=== PATIENT | female | born 1935 | race Caucasian/White ===

== ENCOUNTER 2021-12-27 12:22 | Inpatient (IN) ==
--- NOTE | 2021-12-27 12:43 | Emergency Department Note ---
HPI General Chief complaint: Cold/Flu Symptoms Stated complaint: Covid symptoms Time Seen by Provider: 12/27/21 12:28 Source: patient and family Mode of arrival: wheelchair Limitations: no limitations History of Present Illness HPI Narrative: Narrative: 86-year-old female with a history of CKD, diabetes, atrial tachycardia, hypertriglyceridemia, diverticular disease, COPD, asthma and anxiety presents the ER to be evaluated for worsening shortness of breath. She was seen at the [facility] urgent care about 2 weeks ago and was told she had a virus and was sent home. She was seen again and had a chest x-ray was told it was normal and again was sent home. She states she is had increasing productive sputum, cough, significant shortness of breath and generally does not feel well. She denies fever, vomiting, chest pain, chest pressure, abdominal pain, dysuria, urgency, frequency or diarrhea. Nothing is made things better or worse for her. This has been worsening over the last 2 weeks. Related Data Home Medications Medication Instructions Recorded Confirmed albuterol sulfate 90 mcg/actuation 90 mcg inhalation .COMPLEX PRN 01/24/15 12/19/21 aerosol inhaler shortness of breath lorazepam 1 mg tablet 1 mg PO BIDP PRN Anxiety 01/24/15 12/19/21 montelukast 10 mg tablet 10 mg PO QPM 01/24/15 12/19/21 gemfibrozil 600 mg tablet 600 mg PO BID 11/05/15 12/19/21 azathioprine 50 mg tablet 100 mg PO QDAY 07/09/16 12/19/21 topiramate 25 mg tablet 25 mg PO BID PRN 11/06/16 12/19/21 levothyroxine 50 mcg capsule 50 mcg PO QDAY 03/08/19 12/19/21 methocarbamol 500 mg tablet 500 mg PO TID PRN 10/31/19 12/19/21 metoprolol tartrate 50 mg tablet 50 mg PO BID 10/31/19 12/19/21 albuterol sulfate 1.25 mg/3 mL 1.25 mg inhalation TID PRN 04/01/21 12/19/21 solution for nebulization cholecalciferol (vitamin D3) 50 50 mcg PO QDAY 04/01/21 12/19/21 mcg (2,000 unit) capsule duloxetine 30 mg capsule,delayed 30 mg PO BID 04/01/21 12/19/21 release acetaminophen 500 mg oral powder 500 mg PO QDAY PRN 04/10/21 12/19/21 packet (Tylenol Extra Strength) tumeric 100 mg-geovanna 150 mg-olive cap PO 04/10/21 12/19/21 50 mg-oreg 150 mg-caprylate capsule cyanocobalamin (vitamin B-12) 1,000 mcg IM QMONTH 07/25/21 12/19/21 1,000 mcg/mL injection solution gabapentin 600 mg tablet 300 mg PO TID PRN 07/25/21 12/19/21 vitamin B complex 1 tab PO QDAY 07/25/21 12/19/21 duloxetine 30 mg capsule,delayed 30 mg PO QDAY 12/09/21 12/19/21 release Allergies Allergy/AdvReac Type Severity Reaction Status Date / Time cinacalcet [From Sensipar] Allergy Severe Swelling Verified 12/27/21 12:54 of Lip/Tongue/Throat codeine [CODEINE] Allergy Intermediate RASH SKIN Verified 12/27/21 12:54 PEELING Penicillins [PENICILLINS] Allergy Mild RASH/ITCHIN Verified 12/27/21 16:14 G Pneumococcal Vaccine Allergy Mild Rash Verified 12/27/21 16:14 [From Pneumovax-23] methadone Allergy Unknown Unknown Verified 12/27/21 12:54 hydrochlorothiazide AdvReac Mild Confusion Verified 12/27/21 16:14 iron AdvReac Mild Nausea Verified 12/27/21 16:14 midazolam [From Versed] AdvReac Mild Vomiting Verified 12/27/21 16:14 omeprazole [From Prilosec] AdvReac Mild Shakiness Verified 12/27/21 16:14 prednisone AdvReac Mild Shakiness Verified 12/27/21 16:14 rosuvastatin [From Crestor] AdvReac Mild Nausea Verified 12/27/21 16:14 simvastatin [From Zocor] AdvReac Mild Nausea Verified 12/27/21 16:14 tramadol [From Ultram] AdvReac Mild Dizziness, Verified 12/27/21 16:14 itching From ANAPROX Allergy Intermediate NAUSEA H/A Uncoded 12/09/21 10:15 From DARVOCET-N 100 Allergy Intermediate NAUSEA H/A Uncoded 12/09/21 10:15 From DILAUDID Allergy Intermediate N/V Uncoded 12/09/21 10:15 From PERCOCET Allergy Intermediate ITCHING Uncoded 12/09/21 10:15 RASH From TALWIN Allergy Intermediate NAUSEA H/A Uncoded 12/09/21 10:15 From ULTRAM Allergy Intermediate ITCHING Uncoded 12/09/21 10:15 NAUSEA From VICODIN Allergy Intermediate NAUSEA Uncoded 12/09/21 10:15 WEAKNESS LOCOR Allergy Intermediate GI UPSET Uncoded 12/09/21 10:15 FENTANYL PATCH AdvReac Intermediate NAUSEA Uncoded 12/27/21 16:14 SHAKING "VERY ILL" Review of Systems ROS ROS Narrative: Narrative: All systems ED: reviewed and negative except as stated. [facility] Narrative Patient History Narrative: Narrative: Medical/Surgical/Family History All Active Problems (Updated 12/27/21 @ 16:56 by Gen Townsend PA-C) Pneumonia (Acute) Hyponatremia (Acute) Atrial fibrillation (Acute) Hypothyroidism (acquired) (Acute) Community acquired pneumonia (Acute) COPD exacerbation (Acute) Depression with anxiety (Acute) Anxiety disorder (Chronic) Arthralgia (Chronic) Asthma (Chronic) Vulvovaginal candidiasis (Chronic 06/08/13) Chronic kidney disease, stage II (mild) (Chronic 05/16/13) COPD (chronic obstructive pulmonary disease) (Chronic) Benign neoplasm of colon (Chronic) Crohn disease (Chronic) Depression (Chronic) Diverticulosis of colon (Chronic) Dysmetabolic syndrome X (Chronic) Encephalitis (Chronic) Gastroesophageal reflux (Chronic) Hypercalcemia (Chronic) Hyperlipidemia (Chronic) Hyperparathyroidism, primary (Chronic) Hypertension, essential (Chronic) Hypertensive renal disease (Chronic) Incomplete bladder emptying (Chronic 04/14/13) Macular degeneration (Chronic) Microalbuminuria (Chronic 10/20/11) Obesity (Chronic) Osteoarthritis (Chronic) OP (osteoporosis) (Chronic) Overactive bladder (Chronic 05/05/13) Pyelonephritis (Chronic) Sepsis (Chronic) Urge incontinence (Chronic) UTI (urinary tract infection) (Chronic) Vitamin B 12 deficiency (Chronic) Vitamin D deficiency (Chronic) H/O angiography (Chronic) Hx of appendectomy (Chronic) History of back surgery (Chronic) History of bladder surgery (Chronic) S/P bunionectomy (Chronic) S/P cataract surgery (Chronic) S/P PICC central line placement (Chronic 02/25/13) H/O colonoscopy (Chronic 2014) H/O dilation and curettage (Chronic) H/O foot surgery (Chronic) H/O foot surgery (Chronic) H/O inguinal hernia (Chronic) H/O: hysterectomy (Chronic) Status post intraocular lens implant (Chronic) History of knee replacement procedure of right knee (Chronic) History of knee replacement procedure of left knee (Chronic ~2006) H/O lumbosacral spine surgery (Chronic) Status post surgery (Chronic) H/O repair of right rotator cuff (Chronic) Status post biopsy of thyroid gland (Chronic) Status post surgery (Chronic) Abnormal weight loss (Chronic) Polyp of colon (Chronic) Neoplasm of skin (Chronic) Anemia (Chronic) Depressive disorder (Chronic) Anxiety (Chronic) Migraine (Chronic) Tear film insufficiency (Chronic) Hypertensive disorder (Chronic) Bronchitis (Chronic) Moderate chronic obstructive pulmonary disease (Chronic) Diverticular disease (Chronic) Alcoholic fatty liver (Chronic) Seborrheic keratosis (Chronic) Arthritis (Chronic) Foot pain (Chronic) Fatigue (Chronic) History of alcoholism (Chronic) Dizziness (Chronic) Cellulitis (Chronic) Lumbar radiculopathy (Chronic) Mitral valve regurgitation (Chronic) Hypertriglyceridemia (Chronic) Hypothyroidism (Chronic) Peripheral neuropathic pain (Chronic) Gout (Chronic) Chronic pain (Chronic) Other low back pain (Chronic) Failed back syndrome (Chronic) Chronic kidney disease (CKD) stage G2/A2, mildly decreased glomerular filtration rate (GFR) between 60-89 mL/min/1.73 square meter and albuminuria creatinine rat io between 30-299 mg/g (Chronic) Atrial tachycardia (Chronic) Secondary hyperparathyroidism (Chronic) Pain in lower limb (Chronic) Palpitations (Chronic) Diabetes mellitus with neuropathy (Chronic) Medical History Abnormal weight loss 17 lbs weight loss over short period is concerning poor appetite, ? related to constant pain, scheduled to have surgery will follow in 4-6 weeks will follow with CRP, ESR, TSH levels Alcoholic fatty liver Anemia Anxiety bonnie. nocturnal Anxiety disorder Arthralgia Arthritis Asthma Atrial tachycardia Benign neoplasm of colon Bronchitis Cellulitis Chronic kidney disease, stage II (mild) (05/16/13) Chronic pain COPD (chronic obstructive pulmonary disease) Crohn disease Depression Depressive disorder Diabetes mellitus with neuropathy Diverticular disease Diverticulosis of colon sigmoid region Dizziness Dysmetabolic syndrome X Encephalitis Failed back syndrome Fatigue Foot pain Gastroesophageal reflux Gout H/O inguinal hernia 1987 , left inguinal hernia repair History of alcoholism Quit 1970 Hypercalcemia Hyperlipidemia Hyperparathyroidism, primary Hypertension, essential Hypertensive disorder Hypertensive renal disease Hypertriglyceridemia Hypothyroidism Incomplete bladder emptying (04/14/13) Lumbar radiculopathy Macular degeneration Blindness left eye Microalbuminuria (10/20/11) Migraine Mitral valve regurgitation Moderate chronic obstructive pulmonary disease Neoplasm of skin Obesity OP (osteoporosis) Osteoarthritis Other low back pain Overactive bladder (05/05/13) Pain in lower limb Palpitations Peripheral neuropathic pain Polyp of colon Pyelonephritis Seborrheic keratosis Secondary hyperparathyroidism Sepsis Tear film insufficiency Urge incontinence UTI (urinary tract infection) Vitamin B 12 deficiency Vitamin D deficiency Vulvovaginal candidiasis (06/08/13) Surgical History H/O angiography 1975, 2001 coronary angiography done at [facility]- results were neg for CAD, repeated procedure in , unremarkable. H/O colonoscopy (2013) Crohns/12/12/09 H/O dilation and curettage 1968 d/t miscarriage H/O foot surgery 2003 left H/O foot surgery 2004 Right reconstructive H/O lumbosacral spine surgery 07/2008 Lumbar decompression H/O repair of right rotator cuff 2000 H/O: hysterectomy 1973 [facility] History of back surgery 2000 removal of synovial cyst History of bladder surgery 1975 Had the magaly-Quentin procedure with suprapubic cath placement in 1982 History of cholecystectomy (09/14/17) Laparoscopic History of cystoscopy History of hernia repair History of knee replacement procedure of left knee (~2006) 2006 History of knee replacement procedure of right knee 2008 History of total replacement of right shoulder joint (~04/14/16) Dr Weir Hx of appendectomy 1976 with Hysterectomy S/P bunionectomy 1978 S/P cataract surgery 2009 bilateral S/P PICC central line placement (02/25/13) Status post biopsy of thyroid gland Status post intraocular lens implant 2009 hx of retinal hemorrhage in left eye with visual field cut. Status post surgery 1983 Rectocele repair Status post surgery 2003 Rectal tumor removal Family History Sister Crohn's disease Heart disease Alcoholism Drug abuse Hypertensive disorder Father Diabetes mellitus Malignant melanoma Alcoholism Arthritis Multiple malignancies Heart disease Hypocholesterolemia Hypertensive disorder Cerebrovascular accident Drug abuse Mother Heart disease Myocardial Infarction Hypocholesterolemia Hypertensive disorder Osteoporosis Arthritis Kidney disease Brother Heart disease Diabetes mellitus Alcoholism Drug abuse Family/Other Malignant tumor of colon Son Peptic ulcer Other Breast cancer Social History Smoking Status: Former smoker Alcohol Intake Frequency: former alcohol drinker Substance Use: does not use Exam Narrative Narrative: Narrative: Gen: Patient is tachypneic and tachycardic and generally looks unwell Eyes: PERRL, no conjunctival injection , and symmetrical lids. Sclerae non icteric HENMT: Normocephalic Atraumatic head, external nose and ears. Moist MM. CVS: +S1/S2, No murmurs or gallops. Radial pulses 2+ and equal bilat. No swelling RESP: Increased respiratory effort. No rales, trace rhonchi GI: Nontender/Nondistended (NTND), No focal tenderness MSK: Extremities w/o deformity or ttp. No cyanosis or clubbing. Skin: Warm, Dry . No rashes or lesions . Cap refill less than 2. Psych: Awake, Alert, & Oriented (AAO) x3. Appropriate mood and affect . General Limitations: no limitations Course Vital Signs Vital signs: Vital Signs Temperature 99.6 F H 12/27/21 12:27 Pulse Rate 129 H 12/27/21 12:27 Respiratory Rate 24 H 12/27/21 12:27 Blood Pressure 115/64 12/27/21 12:27 Pulse Oximetry (%) 96 12/27/21 12:27 Oxygen Delivery Method 12/27/21 12:27 Temperature 97.5 F 12/27/21 16:29 Pulse Rate 147 H 12/27/21 15:40 Respiratory Rate 24 H 12/27/21 16:29 Blood Pressure 113/75 12/27/21 16:29 Pulse Oximetry (%) 94 12/27/21 16:29 Oxygen Delivery Method 12/27/21 16:29 MDM MDM Narrative Medical decision making narrative: Narrative: Patient has tachypnea and tachycardia and generally does not look well. She meet SIRS criteria. She has had increasing sputum and has a history of COPD and asthma. She will be evaluated with CBC, Chem-8, hepatic panel, venous blood gas lactate, blood cultures, EKG, troponin, chest x-ray, flu and COVID. Patient was hypoxic with oxygen saturations of 88% on room air. CBC: White count of 18.3 with left shift Chem-8: Hyponatremia at 124 Hepatic panel: Normal Venous blood gas lactate: Lactic normal, decreased bicarb Blood cultures: Pending Troponin: Normal EKG: Atrial fibrillation at a rate of [address] or T wave abnormality to suggest acute ischemia. Normal axis Chest x-ray:IMPRESSION: Moderate right-side and mild left-side pneumonia Interpreted and Authenticated by: Gurwinder Carreno 12/27/21 chest x-ray indicates bilateral pneumonia and patient will be given 1 g of Rocephin and 500 of azithromycin Flu: Negative COVID: Negative Patient has bilateral pneumonia, she was given Rocephin and azithromycin, she has had a liter of fluid, lactate was negative. Troponin negative, blood cultures are pending. She is hyponatremic at 124. She was tachycardic and tachypneic and she has a white count of 18.3 with left shift. Given her age and presentation with significant difficulty breathing and poor appearance I believe she would benefit from inpatient management and hospitalist will be consulted. Dr Brito: Graciously agreed to come down evaluate the patient. Lab Data Result diagrams: 12/27/21 12:35 Labs: Lab Results 12/27/21 12/27/21 12/27/21 Range/Units 12:35 12:35 12:35 WBC 18.3 H (4.5-11.0) K/mcL RBC 3.10 L (3.59-5.38) M/mcL Hgb 9.4 L (11.2-15.7) g/dL Hct 28.0 L (34.1-44.9) % POC Hct (36-48) MCV 90.3 (80.0-100.0) fL MCH 30.3 (26.0-34.0) pg MCHC 33.6 (31.0-36.0) g/dL RDW 14.0 (11.5-14.5) % Plt Count 325 (140-440) K/mcL MPV 9.4 (7.4-10.4) fL Immature Gran % (Auto) 2.0 H (0.0-0.5) % Neut % (Auto) 86.3 H (38.0-78.0) % Lymph % (Auto) 7.3 L (15.5-49.0) % [place] % (Auto) 4.0 (1.0-12.0) % Eos % (Auto) 0.1 (0.0-7.0) % Baso % (Auto) 0.3 (0.0-2.0) % Lymph # (Auto) 1.33 L (1.50-4.80) K/mcL [place] # (Auto) 0.73 (0.10-0.90) K/mcL Eos # (Auto) 0.02 (0.00-0.70) K/mcL Baso # (Auto) 0.05 (0.00-0.30) K/mcL Immature Gran # 0.36 H (0.00-0.05) K/mcl Absolute Neutrophils 16.21 H (1.80-8.00) K/mcL D-Dimer 2.34 H (0.27-0.50) ug/mL POC VBG pH (7.32-7.42) POC VBG pCO2 at Temp (41-51) POC VBG pO2 (25-40) POC VBG HCO3 (24-28) POC VBG Total CO2 (25-29) POC Venous O2 Sat (40-70) POC VBG Base Excess (-2-2) VBG Lactic Acid (0.5-2) POC Sodium (133-145) POC Potassium (3.3-5.1) POC Chloride (96-108) POC Total CO2 (22-30) POC BUN (6-20) POC Creatinine (0.6-1.2) POC Glucose (70-105) POC WB Ioniz Calcium (1.16-1.32) Total Bilirubin 0.4 (0.1-1.0) mg/dL Direct Bilirubin < 0.2 (0-0.3) mg/dL AST 31 (<32) U/L ALT 16 (<40) U/L Alkaline Phosphatase 116 (39-117) U/L Total Protein 6.9 (5.9-8.4) gm/dL Albumin 3.4 (3.2-5.2) gm/dL Globulin 3.5 (2.2-3.7) gm/dL Procalcitonin (<0.10) ng/mL POC Troponin I (0.02-0.08) 07/29/22 07/29/22 07/29/22 Range/Units 12:35 12:48 12:50 WBC (4.5-11.0) K/mcL RBC (3.59-5.38) M/mcL Hgb (11.2-15.7) g/dL Hct (34.1-44.9) % POC Hct 29.0 L (36-48) MCV (80.0-100.0) fL MCH (26.0-34.0) pg MCHC (31.0-36.0) g/dL RDW (11.5-14.5) % Plt Count (140-440) K/mcL MPV (7.4-10.4) fL Immature Gran % (Auto) (0.0-0.5) % Neut % (Auto) (38.0-78.0) % Lymph % (Auto) (15.5-49.0) % [place] % (Auto) (1.0-12.0) % Eos % (Auto) (0.0-7.0) % Baso % (Auto) (0.0-2.0) % Lymph # (Auto) (1.50-4.80) K/mcL [place] # (Auto) (0.10-0.90) K/mcL Eos # (Auto) (0.00-0.70) K/mcL Baso # (Auto) (0.00-0.30) K/mcL Immature Gran # (0.00-0.05) K/mcl Absolute Neutrophils (1.80-8.00) K/mcL D-Dimer (0.27-0.50) ug/mL POC VBG pH 7.39 (7.32-7.42) POC VBG pCO2 at Temp 36.6 L (41-51) POC VBG pO2 31 (25-40) POC VBG HCO3 21.9 L (24-28) POC VBG Total CO2 23.0 L (25-29) POC Venous O2 Sat 59.0 (40-70) POC VBG Base Excess -3.0 L (-2-2) VBG Lactic Acid 1.9 (0.5-2) POC Sodium 124 L (133-145) POC Potassium 3.5 (3.3-5.1) POC Chloride 92 L (96-108) POC Total CO2 23.0 (22-30) POC BUN 10 (6-20) POC Creatinine 0.7 (0.6-1.2) POC Glucose 199 H (70-105) POC WB Ioniz Calcium 1.36 H (1.16-1.32) Total Bilirubin (0.1-1.0) mg/dL Direct Bilirubin (0-0.3) mg/dL AST (<32) U/L ALT (<40) U/L Alkaline Phosphatase (39-117) U/L Total Protein (5.9-8.4) gm/dL Albumin (3.2-5.2) gm/dL Globulin (2.2-3.7) gm/dL Procalcitonin 2.64 H (<0.10) ng/mL POC Troponin I (0.02-0.08) 12/27/21 Range/Units 12:52 WBC (4.5-11.0) K/mcL RBC (3.59-5.38) M/mcL Hgb (11.2-15.7) g/dL Hct (34.1-44.9) % POC Hct (36-48) MCV (80.0-100.0) fL MCH (26.0-34.0) pg MCHC (31.0-36.0) g/dL RDW (11.5-14.5) % Plt Count (140-440) K/mcL MPV (7.4-10.4) fL Immature Gran % (Auto) (0.0-0.5) % Neut % (Auto) (38.0-78.0) % Lymph % (Auto) (15.5-49.0) % [place] % (Auto) (1.0-12.0) % Eos % (Auto) (0.0-7.0) % Baso % (Auto) (0.0-2.0) % Lymph # (Auto) (1.50-4.80) K/mcL [place] # (Auto) (0.10-0.90) K/mcL Eos # (Auto) (0.00-0.70) K/mcL Baso # (Auto) (0.00-0.30) K/mcL Immature Gran # (0.00-0.05) K/mcl Absolute Neutrophils (1.80-8.00) K/mcL D-Dimer (0.27-0.50) ug/mL POC VBG pH (7.32-7.42) POC VBG pCO2 at Temp (41-51) POC VBG pO2 (25-40) POC VBG HCO3 (24-28) POC VBG Total CO2 (25-29) POC Venous O2 Sat (40-70) POC VBG Base Excess (-2-2) VBG Lactic Acid (0.5-2) POC Sodium (133-145) POC Potassium (3.3-5.1) POC Chloride (96-108) POC Total CO2 (22-30) POC BUN (6-20) POC Creatinine (0.6-1.2) POC Glucose (70-105) POC WB Ioniz Calcium (1.16-1.32) Total Bilirubin (0.1-1.0) mg/dL Direct Bilirubin (0-0.3) mg/dL AST (<32) U/L ALT (<40) U/L Alkaline Phosphatase (39-117) U/L Total Protein (5.9-8.4) gm/dL Albumin (3.2-5.2) gm/dL Globulin (2.2-3.7) gm/dL Procalcitonin (<0.10) ng/mL POC Troponin I 0.01 L (0.02-0.08) ED POC Tests ED POC Tests: PHILOMENA - Influenza A Negative PHILOMENA - Influenza B Negative PHILOMENA - SARS Antigen Negative Discharge Plan Patient/Caregiver Discharge Instructions Pt seen by SHACTOR/PA only: Yes Clinical Impression: Pneumonia Patient Disposition: Xfer As Inpt ([facility]) Discharge Date/Time: 12/27/21 16:05
[2021-12-27 12:52] LABS: POC Calcium, Ionized 1.36 (1.16-1.32); POC Creatinine 0.7 (0.6-1.2); POC Potassium 3.5 (3.3-5.1)
[2021-12-27] MEDS ORDERED: 0.9 % SODIUM CHLORIDE 1,000 ML IV ONE (12:54)
--- NOTE | 2021-12-27 13:41 | XRay Report ---
HISTORY: Covid symptoms, cough FINDINGS: There are patchy alveolar infiltrates in both lower lobes predominantly involving the lower two thirds of the right lung and the basilar segments of the left lower lobe. The greatest opacification is located inferiorly and medially in the right lower lobe. There is no pleural effusion. No adenopathy is detected. The heart size is normal. Patient has bilateral shoulder prosthesis. Atherosclerosis is present in the aorta. No prior study is available for comparison. IMPRESSION: Moderate right-side and mild left-side pneumonia Interpreted and Authenticated by: Gurwinder Carreno 12/27/21
[2021-12-27] MEDS ORDERED: AZITHROMYCIN 500 MG in DEXTROSE 5% IN WATER 250 ML IV ONE (13:43)
[2021-12-27] MEDS ORDERED: cefTRIAXone 1 GM VIAL IV ONE (13:43)
[2021-12-27 13:52] LABS: Basophils # (Auto) 0.05 K/mcL (0.00-0.30); Basophils % (Auto) 0.3 % (0.0-2.0); Eosinophils # (Auto) 0.02 K/mcL (0.00-0.70); Eosinophils % (Auto) 0.1 % (0.0-7.0); Hemoglobin 9.4 g/dL (11.2-15.7); Lymphocytes # (Auto) 1.33 K/mcL (1.50-4.80); Lymphocytes % (Auto) 7.3 % (15.5-49.0); Mean Cell Volume 90.3 fL (80.0-100.0); Mean Corpuscular HGB Conc 33.6 g/dL (31.0-36.0); Mean Platelet Volume 9.4 fL (7.4-10.4); Monocytes # (Auto) 0.73 K/mcL (0.10-0.90); Neutrophils % (Auto) 86.3 % (38.0-78.0); Platelet Count 325 K/mcL (140-440); WBC 18.3 K/mcL (4.5-11.0)
--- NOTE | 2021-12-27 13:58 | EKG ---
[facility] Test Date: 2021-12-27 Pat Name: Ashlie Sharpe Department: ED Room: Gender: Female [employer] Vp: LR : 1935 Requested By: Gen Townsend Order Number: [id number] Reading MD: Korey Fitzgerald Measurements Intervals [place] Rate: 130 P: HI: QRS: 20 QRSD: 78 T: 171 QT: 273 QTc: 402 Interpretive Statements Atrial fibrillation with rapid V-rate Repolarization abnormality, prob rate related Electronically Signed On 12-27-2021 13:58:13 PDT by Korey Fitzgerald /store/[email or web address]/[id number]
[2021-12-27 14:21] LABS: ALT/SGPT 16 U/L (<40); AST/SGOT 31 U/L (<32); Albumin 3.4 gm/dL (3.2-5.2); Alkaline Phosphatase 116 U/L (39-117); Bilirubin,Direct < 0.2 mg/dL (0-0.3); Bilirubin,Total 0.4 mg/dL (0.1-1.0); Globulin 3.5 gm/dL (2.2-3.7)
[2021-12-27] MEDS ORDERED: DILTIAZEM 25 MG/5 ML VIAL IV ONE ×2 (14:49→19:00)
--- NOTE | 2021-12-27 15:14 | Internal Med History&Physical ---
HPI History of Present Illness Patient information: Note initiated : 12/27/21 at 3:04 pm Service Date, if different from initiated Date: [] Patient: Ashlie Sharpe 86 y/o F admitted on for Covid symptoms. Chief Complaint: [shortness of breath] Chief complaint: shortness of breath History of present illness: Ms. Sharpe is a 86 year old F history of Crohn's disease, depressions, anxiety, hypothyroidism, type 2 diabetes, essential hypertensions, mixed dyslipidemia, atrial fibrillation's, asthma, COPD, presenting with 3 weeks history of shortness of breath. She is vaccinated against COVID-pneumonia, influenza, and pneumococcus. Denies sick contact or recent travel. She is complain of 3 weeks history of shortness of breath accompanied with productive cough with green sputum productions, respiratory wheezings, subjective fever and chills. She is also complaining of generalized muscle aches and general weakness. She denies any chest pain or palpitations. She denies any GI symptoms such as nausea vomiting or change in her appetite. Vital signs significant for low-grade fever T-max 37.6, tachycardia with heart rate up to the 170s beats per minutes, and oxygen saturation in the mid 90s at rest and high 80s when ambulates. Labs significant for leukocytosis with WBC 18.3. Serum lactic acid 1.9. Influenza AMB, as well as COVID screening test negative. Serum sodium level 124. Chest x-ray showing bilateral infiltrates. Constitutional Constitutional: Present chills, fever(s) and weakness; Absent excessive sweating or fatigue EENT Eyes: Absent blurry vision, change in vision, loss of vision or other visual disturbances Ears: Absent decreased hearing or tinnitus Nose, mouth and throat: Absent abnormal hearing, dry mouth, headache(s), nasal congestion or sore throat Cardiovascular Cardiovascular: Absent chest pain, chest pain at rest, edema, irregular heart rhythm or palpatations Respiratory Respiratory: Present cough, dyspnea, dyspnea on exertion, wheezing and excessive phlegm production Gastrointestinal Gastrointestinal: Absent abdominal pain, constipation, diarrhea, nausea or vomiting Musculoskeletal Musculoskeletal: Present muscle cramps; Absent back pain, deformity, limited range of motion, muscle weakness or numbness Integumentary Integumentary: Absent lesions, rash or wounds Neurological Neurological: Absent focal weakness, headache(s) or numbness Psychiatric Psychiatric: Absent anxiety, depression or hallucinations PFSH PFSH All Active Problems (Updated 12/27/21 @ 15:12 by Jaylon Brito MD) Hyponatremia (Acute) Atrial fibrillation (Acute) Hypothyroidism (acquired) (Acute) Community acquired pneumonia (Acute) COPD exacerbation (Acute) Depression with anxiety (Acute) Anxiety disorder (Chronic) Arthralgia (Chronic) Asthma (Chronic) Vulvovaginal candidiasis (Chronic 06/08/13) Chronic kidney disease, stage II (mild) (Chronic 05/16/13) COPD (chronic obstructive pulmonary disease) (Chronic) Benign neoplasm of colon (Chronic) Crohn disease (Chronic) Depression (Chronic) Diverticulosis of colon (Chronic) Dysmetabolic syndrome X (Chronic) Encephalitis (Chronic) Gastroesophageal reflux (Chronic) Hypercalcemia (Chronic) Hyperlipidemia (Chronic) Hyperparathyroidism, primary (Chronic) Hypertension, essential (Chronic) Hypertensive renal disease (Chronic) Incomplete bladder emptying (Chronic 04/14/13) Macular degeneration (Chronic) Microalbuminuria (Chronic 10/20/11) Obesity (Chronic) Osteoarthritis (Chronic) OP (osteoporosis) (Chronic) Overactive bladder (Chronic 05/05/13) Pyelonephritis (Chronic) Sepsis (Chronic) Urge incontinence (Chronic) UTI (urinary tract infection) (Chronic) Vitamin B 12 deficiency (Chronic) Vitamin D deficiency (Chronic) H/O angiography (Chronic) Hx of appendectomy (Chronic) History of back surgery (Chronic) History of bladder surgery (Chronic) S/P bunionectomy (Chronic) S/P cataract surgery (Chronic) S/P PICC central line placement (Chronic 02/25/13) H/O colonoscopy (Chronic 2013) H/O dilation and curettage (Chronic) H/O foot surgery (Chronic) H/O foot surgery (Chronic) H/O inguinal hernia (Chronic) H/O: hysterectomy (Chronic) Status post intraocular lens implant (Chronic) History of knee replacement procedure of right knee (Chronic) History of knee replacement procedure of left knee (Chronic ~2006) H/O lumbosacral spine surgery (Chronic) Status post surgery (Chronic) H/O repair of right rotator cuff (Chronic) Status post biopsy of thyroid gland (Chronic) Status post surgery (Chronic) Abnormal weight loss (Chronic) Polyp of colon (Chronic) Neoplasm of skin (Chronic) Anemia (Chronic) Depressive disorder (Chronic) Anxiety (Chronic) Migraine (Chronic) Tear film insufficiency (Chronic) Hypertensive disorder (Chronic) Bronchitis (Chronic) Moderate chronic obstructive pulmonary disease (Chronic) Diverticular disease (Chronic) Alcoholic fatty liver (Chronic) Seborrheic keratosis (Chronic) Arthritis (Chronic) Foot pain (Chronic) Fatigue (Chronic) History of alcoholism (Chronic) Dizziness (Chronic) Cellulitis (Chronic) Lumbar radiculopathy (Chronic) Mitral valve regurgitation (Chronic) Hypertriglyceridemia (Chronic) Hypothyroidism (Chronic) Peripheral neuropathic pain (Chronic) Gout (Chronic) Chronic pain (Chronic) Other low back pain (Chronic) Failed back syndrome (Chronic) Chronic kidney disease (CKD) stage G2/A2, mildly decreased glomerular filtration rate (GFR) between 60-89 mL/min/1.73 square meter and albuminuria creatinine ratio between 30-299 mg/g (Chronic) Atrial tachycardia (Chronic) Secondary hyperparathyroidism (Chronic) Pain in lower limb (Chronic) Palpitations (Chronic) Diabetes mellitus with neuropathy (Chronic) Medical History Abnormal weight loss 17 lbs weight loss over short period is concerning poor appetite, ? related to constant pain, scheduled to have surgery will follow in 4-6 weeks will follow with CRP, ESR, TSH levels Alcoholic fatty liver Anemia Anxiety bonnie. nocturnal Anxiety disorder Arthralgia Arthritis Asthma Atrial tachycardia Benign neoplasm of colon Bronchitis Cellulitis Chronic kidney disease, stage II (mild) (05/16/13) Chronic pain COPD (chronic obstructive pulmonary disease) Crohn disease Depression Depressive disorder Diabetes mellitus with neuropathy Diverticular disease Diverticulosis of colon sigmoid region Dizziness Dysmetabolic syndrome X Encephalitis Failed back syndrome Fatigue Foot pain Gastroesophageal reflux Gout H/O inguinal hernia 1986 , left inguinal hernia repair History of alcoholism Quit 1970 Hypercalcemia Hyperlipidemia Hyperparathyroidism, primary Hypertension, essential Hypertensive disorder Hypertensive renal disease Hypertriglyceridemia Hypothyroidism Incomplete bladder emptying (04/14/13) Lumbar radiculopathy Macular degeneration Blindness left eye Microalbuminuria (10/20/11) Migraine Mitral valve regurgitation Moderate chronic obstructive pulmonary disease Neoplasm of skin Obesity OP (osteoporosis) Osteoarthritis Other low back pain Overactive bladder (05/05/13) Pain in lower limb Palpitations Peripheral neuropathic pain Polyp of colon Pyelonephritis Seborrheic keratosis Secondary hyperparathyroidism Sepsis Tear film insufficiency Urge incontinence UTI (urinary tract infection) Vitamin B 12 deficiency Vitamin D deficiency Vulvovaginal candidiasis (06/08/13) Surgical History H/O angiography 2001 coronary angiography done at [facility]- results were neg for CAD, repeated procedure in . H/O colonoscopy (2013) Crohns/12/12/09 H/O dilation and curettage 1968 d/t miscarriage H/O foot surgery 2003 left H/O foot surgery 2004 Right reconstructive H/O lumbosacral spine surgery 07/2008 Lumbar decompression H/O repair of right rotator cuff 2000 H/O: hysterectomy 1972 [facility] History of back surgery 2000 removal of synovial cyst History of bladder surgery 1975 Had the magaly-Quentin procedure with suprapubic cath placement in 1982 History of cholecystectomy (09/14/17) Laparoscopic History of cystoscopy History of hernia repair History of knee replacement procedure of left knee (~2006) 2006 History of knee replacement procedure of right knee 2007 History of total replacement of right shoulder joint (~04/14/16) Dr Weir Hx of appendectomy 1975 with Hysterectomy S/P bunionectomy 1978 S/P cataract surgery 2009 bilateral S/P PICC central line placement (02/25/13) Status post biopsy of thyroid gland Status post intraocular lens implant 2008 hx of retinal hemorrhage in left eye with visual field cut. Status post surgery 1983 Rectocele repair Status post surgery 2003 Rectal tumor removal Family History Sister Crohn's disease Heart disease Alcoholism Drug abuse Hypertensive disorder Father Diabetes mellitus Malignant melanoma Alcoholism Arthritis Multiple malignancies Heart disease Hypocholesterolemia Hypertensive disorder Cerebrovascular accident Drug abuse Mother Heart disease Myocardial Infarction Hypocholesterolemia Hypertensive disorder Osteoporosis Arthritis Kidney disease Brother Heart disease Diabetes mellitus Alcoholism Drug abuse Family/Other Malignant tumor of colon Son Peptic ulcer Other Breast cancer Social History (Updated 11/14/21 @ 09:49 by Teresa Perez) household members: spouse housing: house lives independently: Yes marital status: education level: high school occupational status: retired pets and animals: Yes other: Dhildren-5 smoking status: Former smoker quit date: 05/26/71 alcohol intake frequency: former alcohol drinker substance use type: does not use seatbelt use: always working smoke detector in home: Yes carbon monox detector in home: Yes MEDS/ALLERGIES Home Medications and Allergies Home Medications Medication Instructions Recorded Confirmed Type albuterol sulfate 90 mcg/actuation 90 mcg inhalation .COMPLEX PRN 01/24/15 12/19/21 History aerosol inhaler shortness of breath lorazepam 1 mg tablet 1 mg PO BIDP PRN Anxiety 01/24/15 12/19/21 History montelukast 10 mg tablet 10 mg PO QPM 01/24/15 12/19/21 History gemfibrozil 600 mg tablet 600 mg PO BID 11/05/15 12/19/21 History azathioprine 50 mg tablet 100 mg PO QDAY 07/09/16 12/19/21 History topiramate 25 mg tablet 25 mg PO BID PRN 11/06/16 12/19/21 History levothyroxine 50 mcg capsule 50 mcg PO QDAY 03/08/19 12/19/21 History methocarbamol 500 mg tablet 500 mg PO TID PRN 10/31/19 12/19/21 History metoprolol tartrate 50 mg tablet 50 mg PO BID 10/31/19 12/19/21 History albuterol sulfate 1.25 mg/3 mL 1.25 mg inhalation TID PRN 04/01/21 12/19/21 History solution for nebulization cholecalciferol (vitamin D3) 50 50 mcg PO QDAY 04/01/21 12/19/21 History mcg (2,000 unit) capsule duloxetine 30 mg capsule,delayed 30 mg PO BID 04/01/21 12/19/21 History release acetaminophen 500 mg oral powder 500 mg PO QDAY PRN 04/10/21 12/19/21 History packet (Tylenol Extra Strength) tumeric 100 mg-geovanna 150 mg-olive cap PO 04/10/21 12/19/21 History 50 mg-oreg 150 mg-caprylate capsule cyanocobalamin (vitamin B-12) 1,000 mcg IM QMONTH 07/25/21 12/19/21 History 1,000 mcg/mL injection solution gabapentin 600 mg tablet 300 mg PO TID PRN 07/25/21 12/19/21 History vitamin B complex 1 tab PO QDAY 07/25/21 12/19/21 History duloxetine 30 mg capsule,delayed 30 mg PO QDAY 12/09/21 12/19/21 History release Allergies Allergy/AdvReac Type Severity Reaction Status Date / Time cinacalcet [From Sensipar] Allergy Severe Swelling Verified 12/27/21 12:54 of Lip/Tongue/Throat codeine [CODEINE] Allergy Intermediate RASH SKIN Verified 12/27/21 12:54 PEELING iron Allergy Intermediate Nausea Verified 12/27/21 12:54 Penicillins [PENICILLINS] Allergy Intermediate RASH/ITCHIN Verified 12/27/21 12:54 G hydrochlorothiazide Allergy Unknown Confusion Verified 12/27/21 12:54 methadone Allergy Unknown Unknown Verified 12/27/21 12:54 Pneumococcal Vaccine Allergy Unknown Rash Verified 12/27/21 12:54 [From Pneumovax-23] tramadol [From Ultram] Allergy Unknown Dizziness, Verified 12/27/21 12:54 itching midazolam [From Versed] AdvReac Intermediate Vomiting Verified 12/27/21 12:54 omeprazole [From Prilosec] AdvReac Intermediate Shakiness Verified 12/27/21 12:54 prednisone AdvReac Intermediate Shakiness Verified 12/27/21 12:54 rosuvastatin [From Crestor] AdvReac Intermediate Nausea Verified 12/27/21 12:54 simvastatin [From Zocor] AdvReac Intermediate Nausea Verified 12/27/21 12:54 FENTANYL PATCH Allergy Intermediate NAUSEA Uncoded 12/09/21 10:15 SHAKING "VERY ILL" From ANAPROX Allergy Intermediate NAUSEA H/A Uncoded 12/09/21 10:15 From DARVOCET-N 100 Allergy Intermediate NAUSEA H/A Uncoded 12/09/21 10:15 From DILAUDID Allergy Intermediate N/V Uncoded 12/09/21 10:15 From PERCOCET Allergy Intermediate ITCHING Uncoded 12/09/21 10:15 RASH From TALWIN Allergy Intermediate NAUSEA H/A Uncoded 12/09/21 10:15 From ULTRAM Allergy Intermediate ITCHING Uncoded 12/09/21 10:15 NAUSEA From VICODIN Allergy Intermediate NAUSEA Uncoded 12/09/21 10:15 WEAKNESS LOCOR Allergy Intermediate GI UPSET Uncoded 12/09/21 10:15 EXAM Constitutional Vitals: Temp Pulse Resp BP Pulse Ox O2 Del Method 37.6 C H 104 H 24 H 97/84 88 L 12/27/21 12:27 12/27/21 12:49 12/27/21 14:46 12/27/21 14:24 12/27/21 13:00 12/27/21 13:00 General appearance: average body habitus, cooperative and mild distress Head Head exam: Present atraumatic and normocephalic Eye Eye exam: Present EOMI and PERRL ENT ENT exam: Present mucous membranes moist and normal external ear exam; Absent normal exam Additional comments: Bilateral hard of hearing Neck Neck exam: Present normal inspection; Absent lymphadenopathy, tenderness or thyromegaly Respiratory Respiratory exam: Present rhonchi and wheezes; Absent accessory muscle use or respiratory distress Cardiovascular Cardiovascular exam: Present irregular rhythm and tachycardia; Absent JVD GI/Abdominal GI/Abdominal exam: Present normal bowel sounds and soft; Absent organomegaly or tenderness Extremities Exam Extremities exam: Present full ROM, normal capillary refill and normal inspection; Absent tenderness Neurological Exam Neurological exam: Present alert, CN II-XII intact and oriented X3; Absent motor sensory deficit Psychiatric Psychiatric exam: Present normal affect and normal mood; Absent anxious or depressed Skin Skin exam: Present dry and intact DATA Data Completed and Pending Labs: Labs from last 24 hours 12/27/21 12/27/21 12/27/21 12:52 12:50 12:48 WBC RBC Hgb Hct POC Hct 29.0 L MCV MCH MCHC RDW Plt Count MPV Immature Gran % (Auto) Neut % (Auto) Lymph % (Auto) [place] % (Auto) Eos % (Auto) Baso % (Auto) Lymph # (Auto) [place] # (Auto) Eos # (Auto) Baso # (Auto) Immature Gran # Absolute Neutrophils POC VBG pH 7.39 POC VBG pCO2 at Temp 36.6 L POC VBG pO2 31 POC VBG HCO3 21.9 L POC VBG Total CO2 23.0 L POC Venous O2 Sat 59.0 POC VBG Base Excess -3.0 L VBG Lactic Acid 1.9 POC Sodium 124 L POC Potassium 3.5 POC Chloride 92 L POC Total CO2 23.0 POC BUN 10 POC Creatinine 0.7 POC Glucose 199 H POC WB Ioniz Calcium 1.36 H Total Bilirubin Direct Bilirubin AST ALT Alkaline Phosphatase Total Protein Albumin Globulin POC Troponin I 0.01 L 12/27/21 12/27/21 12:35 12:35 WBC 18.3 H RBC 3.10 L Hgb 9.4 L Hct 28.0 L POC Hct MCV 90.3 MCH 30.3 MCHC 33.6 RDW 14.0 Plt Count 325 MPV 9.4 Immature Gran % (Auto) 2.0 H Neut % (Auto) 86.3 H Lymph % (Auto) 7.3 L [place] % (Auto) 4.0 Eos % (Auto) 0.1 Baso % (Auto) 0.3 Lymph # (Auto) 1.33 L [place] # (Auto) 0.73 Eos # (Auto) 0.02 Baso # (Auto) 0.05 Immature Gran # 0.36 H Absolute Neutrophils 16.21 H POC VBG pH POC VBG pCO2 at Temp POC VBG pO2 POC VBG HCO3 POC VBG Total CO2 POC Venous O2 Sat POC VBG Base Excess VBG Lactic Acid POC Sodium POC Potassium POC Chloride POC Total CO2 POC BUN POC Creatinine POC Glucose POC WB Ioniz Calcium Total Bilirubin 0.4 Direct Bilirubin < 0.2 AST 31 ALT 16 Alkaline Phosphatase 116 Total Protein 6.9 Albumin 3.4 Globulin 3.5 POC Troponin I A/P Assessment and plan (1) Depression with anxiety: Status: Acute (2) Asthma: Status: Chronic (3) COPD exacerbation: Status: Acute (4) Community acquired pneumonia: Status: Acute (5) Crohn disease: Status: Chronic (6) Hypertension, essential: Status: Chronic (7) Hyperlipidemia: Status: Chronic (8) Sepsis: Status: Chronic (9) Hypothyroidism: Status: Chronic (10) Diabetes mellitus with neuropathy: Status: Chronic Qualifiers: Diabetes mellitus type: type 2 Diabetes mellitus 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 Community acquired pneumonia, sepsis criteria: Supplemental oxygen therapy as needed titrate to achieve spo2>=88% Serial lactic acid Procalcitonin level Blood culture cbc w/ auto diff in the morning to trend WBC Vancomycin Meropenem Status post IV fluid boluses given in the ED, to be followed by normal saline at 100 cc/h 2. COPD exacerbation: Supplemental oxygen therapy as needed titrate to achieve spo2>=88% Vancomycin Meropenem DuoNEB NEB scheduled Montelukast Prednisone 3. Uncontrolled atrial fibrillation, likely triggered by infection: Treat underlying infection, see #[address] angio chest to rule out PE, if D dimer elevated Diltiazem 20mg IV once Diltiazem drip Metoprolol tartrate [id number] score of 5. Discussed with patient the need to start anticoagulations, patient would like to do further discussions with her PCP later 4. Hyponatremia: Status post IV fluid boluses given in the ED, to be followed by normal saline at 100 cc/h Serum sodium level check every 8 hours. Goal of correction 8-10 points in the first 24 hours to avoid overcorrection with HEALTH CARE / MEDICAL JOB TITLES consequences such as central pontine myelinolysis 5. Depression with anxiety: Continue duloxetine 6. Acquired hypothyroidism: Continue thyroid replacement therapy 7. History of Crohn's disease: Continue azathioprine 8. Type 2 diabetes mellitus: Hemoglobin A1c Hold oral hypoglycemics SSI AC HS Accu Chek AC HS Hypoglycemia protocol Diabetic diet 9. History of essential hypertensions: Continue metoprolol tartrate Diltiazem 20mg IV once Diltiazem drip 10. Dyslipidemia: Continue statin therapy GI ppx: Protonix DVT ppx: Lovenox Code: Full Prognosis: guarded Disposition: inpatient ICU Critical Care Time: 1hr Time Spent With Patient Time: Total time spent is greater than 50% in coordination of care (as documented) at patient's floor/unit and/or counseling patient: Total time spent with greater than 50% in coordination of care (as documented) at patient's floor/unit and/or counseling patient:: 50 - 70 minutes Critical Care Time: Yes Total Critical Care Time: 60
[2021-12-27] MEDS ORDERED: ACETAMINOPHEN 500 MG PO PRN (16:08)
[2021-12-27] MEDS ORDERED: DEXTROSE 31 GM ORAL.SUSP PO PRN (16:08)
[2021-12-27] MEDS ORDERED: ONDANSETRON 4 MG/2 ML VIAL IV PRN (16:08)
[2021-12-27] MEDS ORDERED: DEXTROSE 50% 50 ML VIAL IV PRN (16:08)
[2021-12-27] MEDS ORDERED: VANCOMYCIN PER PHARMACY IV SCH (16:08)
[2021-12-27] MEDS ORDERED: TOPIRAMATE 25 MG TABLET PO PRN (16:08)
[2021-12-27] MEDS ORDERED: GABAPENTIN 300 MG CAPSULE PO PRN (16:16)
[2021-12-27] MEDS: IPRATROPIUM/ALBUTEROL 3 ML AMPUL.NEB NEB SCH (16:48)
[2021-12-27] MEDS: INSULIN LISPRO 1 UNIT/0.01 ML UNIT SQ SCH ×2 (16:50→21:51)
[2021-12-27] MEDS: predniSONE 20 MG TABLET PO SCH (16:51)
[2021-12-27] MEDS: 0.9 % SODIUM CHLORIDE 1,000 ML IV SCH (16:51)
[2021-12-27] MEDS: MEROPENEM 1 GM in 0.9 % SODIUM CHLORIDE 50 ML IV SCH ×2 (16:51→21:53)
[2021-12-27] MEDS ORDERED: DILTIAZEM 125 MG in DEXTROSE 5% IN WATER 100 ML IV SCH (17:00)
[2021-12-27] MEDS: 0.9 % SODIUM CHLORIDE 250 ML IV SCH (17:14)
[2021-12-27 17:46] LABS: Hemoglobin A1C 5.9 % Hgb (4.0-6.0)
[2021-12-27] MEDS ORDERED: VANCOMYCIN 1,000 MG in 0.9 % SODIUM CHLORIDE 250 ML IV ONE (18:00)
[2021-12-27] MEDS ORDERED: DILTIAZEM 25 MG/5 ML VIAL IV SCH (18:50)
[2021-12-27] MEDS ORDERED: LEVALBUTEROL 0.63 MG/3 ML AMPUL.NEB NEB SCH (19:00)
[2021-12-27] MEDS: DILTIAZEM 125 MG in DEXTROSE 5% IN WATER 100 ML IV SCH (19:18)
[2021-12-27] MEDS: LEVALBUTEROL 0.63 MG/3 ML AMPUL.NEB NEB SCH ×3 (19:35→23:22)
[2021-12-27] MEDS: METHOCARBAMOL 500 MG TABLET PO PRN (21:34)
[2021-12-27] MEDS: METOPROLOL TARTRATE 50 MG TABLET PO SCH (21:34)
[2021-12-27] MEDS: MONTELUKAST 10 MG TABLET PO SCH (21:34)
[2021-12-27] MEDS: DOCUSATE SODIUM 100 MG CAPSULE PO SCH (21:34)
[2021-12-27] MEDS: ACETAMINOPHEN 325 MG TABLET PO PRN (21:35)
[2021-12-27] MEDS: GEMFIBROZIL 600 MG TABLET PO SCH (21:36)
[2021-12-27] MEDS: 0.9 % SODIUM CHLORIDE 10 ML SYRINGE IV SCH (21:36)
[2021-12-27] MEDS: DULoxetine 30 MG CAPSULE PO SCH (21:36)
[2021-12-27] MEDS ORDERED: DILTIAZEM 125 MG/25 ML VIAL IV ONE (21:53)
[2021-12-27] MEDS: guaiFENesin/DEXTROMETHORPHAN ORAL SOL PO PRN (22:15)
[2021-12-28] MEDS: 0.9 % SODIUM CHLORIDE 1,000 ML IV SCH ×5 (02:09→22:08)
[2021-12-28] MEDS: DILTIAZEM 125 MG in DEXTROSE 5% IN WATER 100 ML IV SCH ×2 (03:02→18:15)
[2021-12-28] MEDS: 0.9 % SODIUM CHLORIDE 250 ML IV SCH ×3 (03:03→17:48)
[2021-12-28] MEDS: LEVALBUTEROL 0.63 MG/3 ML AMPUL.NEB NEB SCH ×3 (04:29→11:48)
[2021-12-28] MEDS: MEROPENEM 1 GM in 0.9 % SODIUM CHLORIDE 50 ML IV SCH ×3 (05:37→22:08)
[2021-12-28] MEDS: 0.9 % SODIUM CHLORIDE 10 ML SYRINGE IV SCH ×3 (05:51→22:08)
[2021-12-28] MEDS: IPRATROPIUM/ALBUTEROL 3 ML AMPUL.NEB NEB SCH (05:52)
[2021-12-28 06:34] LABS: ALT/SGPT 13 U/L (<40); AST/SGOT 19 U/L (<32); Albumin 2.7 gm/dL (3.2-5.2); Albumin/Globulin Ratio 0.9 (1.0-2.3); Alkaline Phosphatase 103 U/L (39-117); Bilirubin,Total 0.2 mg/dL (0.1-1.0); Blood Urea Nitrogen 8 mg/dL (8-23); Calcium 9.3 mg/dL (8.6-10.4); Carbon Dioxide 20 mmol/L (22-30); Chloride 93 mmol/L (96-108); Globulin 3.1 gm/dL (2.2-3.7); Glomerular Filtration Rate 78; Glucose 176 mg/dL (70-105)
[2021-12-28 06:35] LABS: Phosphorous 2.7 mg/dL (2.5-4.5)
[2021-12-28 06:46] LABS: Basophils # (Auto) 0.02 K/mcL (0.00-0.30); Basophils % (Auto) 0.1 % (0.0-2.0); Eosinophils # (Auto) 0 K/mcL (0.00-0.70); Eosinophils % (Auto) 0 % (0.0-7.0); Hematocrit 25.4 % (34.1-44.9); Hemoglobin 8.1 g/dL (11.2-15.7); Lymphocytes # (Auto) 1.01 K/mcL (1.50-4.80); Lymphocytes % (Auto) 7.5 % (15.5-49.0); Mean Cell Volume 93.7 fL (80.0-100.0); Mean Corpuscular HGB Conc 31.9 g/dL (31.0-36.0); Mean Platelet Volume 9.2 fL (7.4-10.4); Monocytes # (Auto) 0.48 K/mcL (0.10-0.90); Monocytes % (Auto) 3.5 % (1.0-12.0); Neutrophils % (Auto) 87.3 % (38.0-78.0); Platelet Count 256 K/mcL (140-440); RBC 2.71 M/mcL (3.59-5.38); Red Cell Distribution Width 14.2 % (11.5-14.5); WBC 13.6 K/mcL (4.5-11.0)
[2021-12-28] MEDS: INSULIN LISPRO 1 UNIT/0.01 ML UNIT SQ SCH ×4 (07:54→20:50)
[2021-12-28] MEDS: VITAMIN B COMPLEX 1 CAPSULE PO SCH (08:10)
[2021-12-28] MEDS: DULoxetine 30 MG CAPSULE PO SCH ×2 (08:10→20:50)
[2021-12-28] MEDS: azaTHIOprine 50 MG TABLET PO SCH (08:10)
[2021-12-28] MEDS: SENNOSIDES 1 TABLET PO SCH ×2 (08:11→08:44)
[2021-12-28] MEDS: predniSONE 20 MG TABLET PO SCH (08:11)
[2021-12-28] MEDS: LEVOTHYROXINE 50 MCG TABLET PO SCH (08:11)
[2021-12-28] MEDS: GEMFIBROZIL 600 MG TABLET PO SCH ×2 (08:11→20:50)
[2021-12-28] MEDS: PANTOPRAZOLE 40 MG PACKET PO SCH ×2 (08:11→08:47)
[2021-12-28] MEDS: METOPROLOL TARTRATE 50 MG TABLET PO SCH ×2 (08:12→20:50)
[2021-12-28] MEDS: DOCUSATE SODIUM 100 MG CAPSULE PO SCH ×2 (08:12→20:50)
[2021-12-28] MEDS: VITAMIN D3 25 MCG TABLET PO SCH (08:12)
[2021-12-28] MEDS: ENOXAPARIN 40 MG/0.4 ML SYRINGE SQ SCH (08:12)
[2021-12-28] MEDS: VANCOMYCIN 1,000 MG in 0.9 % SODIUM CHLORIDE 250 ML IV SCH (08:56)
[2021-12-28] MEDS ORDERED: CYANOCOBALAMIN 1,000 MCG/ML VIAL IM SCH (09:00)
--- NOTE | 2021-12-28 09:16 | Internal Med Progress Note ---
SUBJECTIVE Subjective Patient information: Note initiated : 12/28/21 at 9:09 am Service Date, if different from initiated Date: [] Patient: Ashlie Sharpe 86 y/o F admitted on 12/27/21 for Covid symptoms. Chief Complaint: [] Interval history: Ms. Sharpe is a 86 year old F history of Crohn's disease, depressions, anxiety, hypothyroidism, type 2 diabetes, essential hypertensions, mixed dyslipidemia, atrial fibrillation's, asthma, COPD, presenting with 3 weeks history of shortness of breath. She is vaccinated against COVID-pneumonia, influenza, and pneumococcus. Denies sick contact or recent travel. She is complain of 3 weeks history of shortness of breath accompanied with productive cough with green sputum productions, respiratory wheezings, subjective fever and chills. She is also complaining of generalized muscle aches and general weakness. She denies any chest pain or palpitations. She denies any GI symptoms such as nausea vomiting or change in her appetite. Vital signs significant for low-grade fever T-max 37.6, tachycardia with heart rate up to the 170s beats per minutes, and oxygen saturation in the mid 90s at rest and high 80s when ambulates. Labs significant for leukocytosis with WBC 18.3. Serum lactic acid 1.9. Influenza AMB, as well as COVID screening test negative. Serum sodium level 124. Chest x-ray showing bilateral infiltrates. 12/28: [place] negative. CT angio chest negative for PE. Serum sodium level 124. Afebrile overnight. On 1L/min oxygen. Cultures no growth to date. Diltiazem drip was being switched off at around 0530 this morning. Patient's degree of shortness of breath has improved. c/o productive cough with yellow/green sputum. c/o wheezing. Denies chest pain or palpitation. Denies fever chills or diaphoresis. Diltiazem drip stands by. Metoprolol tartrate, titrate dosage as tolerated. Patient would like to defer the decision of starting anticoagulants with her PCP. Continue supplemental oxygen, Vancomycin/Zosyn for pneumonia. Continue bronchodilators and Prednisone for COPD with exacerbation. Constitutional Vitals: Vital Signs Temp Pulse Resp BP Pulse Ox O2 Del Method O2 Flow Rate 35.9 C L 113 H 26 H 87/72 96 1 12/28/21 08:00 12/28/21 07:40 07/30/22 08:00 12/28/21 08:00 12/28/21 08:00 12/28/21 07:40 12/28/21 07:40 Period Temp Pulse Resp BP Sys/Matt Pulse Ox O2 Del Method O2 Flow Rate Last 24 Hr 35.9 C-37.6 C 33-147 15-32 74-135/49-114 88-99 Nasal Cannula- Room Air 1-2 Intake and Output 12/27/21 12/28/21 12/28/21 21:59 05:59 13:59 Intake Total 1548 2346 170 Output Total 650 600 350 Balance 898 1746 -180 Weight 69.899 kg Intake & Output: Intake & Output 12/27/21 12/28/21 12/28/21 21:59 05:59 13:59 Intake Total 1548 2346 170 Output Total 650 600 350 Balance 898 1746 -180 Weight 69.899 kg Intake: IV 1308 1626 50 Sodium Chloride 0.9% 1,000 ml @ 1000 1000 100 mls/hr IV .Q10H [facility] Rx#: [id number] Sodium Chloride 0.9% 250 ml @ 196 20 mls/hr IV .[id number] [facility] Rx#: [id number] Zithromax 500 mg In Dextrose 5% 250 in Water 250 ml @ 250 mls/hr IV ONCE ONE Rx#:[id number] Cardizem 125 mg In Dextrose 5% 8 130 in Water 100 ml @ 5 MG/HR 5 mls /hr IV Q24H [facility] Rx#:[id number] Merrem 1 gm In Sodium Chloride 50 50 50 0.9% 50 ml @ 100 mls/hr IV Q8H [facility] Rx#:[id number] Vancomycin 1,000 mg In Sodium 250 Chloride 0.9% 250 ml @ 250 mls/ hr IV ONCE ONE Rx#:[id number] Oral 240 720 120 Output: Void Amount 650 600 350 Other: Meal Dinner Breakfast Percent of Meal Consumed 75% 100% Feeding Ability Independent Independent Urine Appearance Clear Clear Clear Urine Color Bright Yellow Pale Straw Head Head exam: Present atraumatic and normal inspection Eye Eye exam: Present normal appearance ENT ENT exam: Present mucous membranes moist, normal exam and normal external ear exam Additional comments: Nasal cannula in place Neck Neck exam: Present normal inspection Respiratory Respiratory exam: Present decreased breath sounds and rhonchi Cardiovascular Cardiovascular exam: Present irregular rhythm and tachycardia GI/Abdominal GI/Abdominal exam: Present normal bowel sounds Back Exam Back exam: Present normal inspection Neurological Exam Neurological exam: Present alert and oriented X3 Skin Skin exam: Present intact and warm OBJ DATA Labs CBC & Chem 7: 12/28/21 05:16 12/28/21 05:16 Labs: Abnormal Lab Results 12/28/21 12/28/21 12/28/21 05:16 05:16 05:16 WBC 13.6 H RBC 2.71 L Hgb 8.1 L Hct 25.4 L POC Hct Immature Gran % (Auto) 1.6 H Neut % (Auto) 87.3 H Lymph % (Auto) 7.5 L Lymph # (Auto) 1.01 L Immature Gran # 0.22 H Absolute Neutrophils 12.04 H D-Dimer POC VBG pCO2 at Temp POC VBG HCO3 POC VBG Total CO2 POC VBG Base Excess POC Sodium Sodium 124 L 124 L POC Chloride Chloride 93 L Carbon Dioxide 20 L Glucose 176 H POC Glucose POC WB Ioniz Calcium Total Protein 5.8 L Albumin 2.7 L Albumin/Globulin Ratio 0.9 L Procalcitonin POC Troponin I 12/27/21 12/27/21 12/27/21 21:51 12:52 12:50 WBC RBC Hgb Hct POC Hct Immature Gran % (Auto) Neut % (Auto) Lymph % (Auto) Lymph # (Auto) Immature Gran # Absolute Neutrophils D-Dimer POC VBG pCO2 at Temp 36.6 L POC VBG HCO3 21.9 L POC VBG Total CO2 23.0 L POC VBG Base Excess -3.0 L POC Sodium Sodium 123 L POC Chloride Chloride Carbon Dioxide Glucose POC Glucose POC WB Ioniz Calcium Total Protein Albumin Albumin/Globulin Ratio Procalcitonin POC Troponin I 0.01 L 12/27/21 12/27/21 12/27/21 12:48 12:35 12:35 WBC RBC Hgb Hct POC Hct 29.0 L Immature Gran % (Auto) Neut % (Auto) Lymph % (Auto) Lymph # (Auto) Immature Gran # Absolute Neutrophils D-Dimer 2.34 H POC VBG pCO2 at Temp POC VBG HCO3 POC VBG Total CO2 POC VBG Base Excess POC Sodium 124 L Sodium POC Chloride 92 L Chloride Carbon Dioxide Glucose POC Glucose 199 H POC WB Ioniz Calcium 1.36 H Total Protein Albumin Albumin/Globulin Ratio Procalcitonin 2.64 H POC Troponin I 12/27/21 12:35 WBC 18.3 H RBC 3.10 L Hgb 9.4 L Hct 28.0 L POC Hct Immature Gran % (Auto) 2.0 H Neut % (Auto) 86.3 H Lymph % (Auto) 7.3 L Lymph # (Auto) 1.33 L Immature Gran # 0.36 H Absolute Neutrophils 16.21 H D-Dimer POC VBG pCO2 at Temp POC VBG HCO3 POC VBG Total CO2 POC VBG Base Excess POC Sodium Sodium POC Chloride Chloride Carbon Dioxide Glucose POC Glucose POC WB Ioniz Calcium Total Protein Albumin Albumin/Globulin Ratio Procalcitonin POC Troponin I Meds: Medications Acetaminophen (Acetaminophen 325 Mg Tablet) 650 mg PO Q4-6HP PRN; Protocol PRN Reason: Per Pain Protocol/Fever > 101 Last Admin: 12/27/21 21:35 Dose: 650 mg Azathioprine (Azathioprine 50 Mg Tablet) 100 mg PO QDAY [facility] Last Admin: 12/28/21 08:10 Dose: 100 mg Dextrose (Dextrose 50% 50 Ml Vial) 0 ml IV UD PRN PRN Reason: Per Sliding Scale Diagnostic Test (Pha) (Accu-Chek 1 Each Strip) 1 each FS ACHS [facility] Last Admin: 12/28/21 07:49 Dose: 1 each Docusate Sodium (Docusate Sodium 100 Mg Capsule) 100 mg PO BID [facility] Last Admin: 12/28/21 08:12 Dose: 100 mg Duloxetine HCl (Duloxetine 30 Mg Capsule) 30 mg PO BID [facility] Last Admin: 12/28/21 08:10 Dose: 30 mg Enoxaparin Sodium (Enoxaparin 40 Mg/0.4 Ml Syringe) 40 mg SQ DAILY [facility] Last Admin: 12/28/21 08:12 Dose: 40 mg Gabapentin (Gabapentin 300 Mg Capsule) 300 mg PO TID PRN PRN Reason: Pain Last Admin: 12/27/21 21:36 Dose: 300 mg Gemfibrozil (Gemfibrozil 600 Mg Tablet) 600 mg PO BID [facility] Last Admin: 12/28/21 08:11 Dose: 600 mg Glucose (Dextrose 31 Gm Oral.Susp) 15 gm PO PRN PRN PRN Reason: Hypoglycemia Guaifenesin (Guaifenesin/Dextromethorphan Oral Gege) 10 ml PO Q4HP PRN PRN Reason: Cough Last Admin: 12/27/21 22:15 Dose: 10 ml Sodium Chloride (Sodium Chloride 0.9%) 1,000 mls @ 100 mls/hr IV .Q10H [facility] Last Admin: 12/28/21 09:02 Dose: 100 mls/hr Meropenem 1 gm/ Sodium (Chloride) 50 mls @ 100 mls/hr IV Q8H [facility]; Protocol Last Infusion: 12/28/21 06:07 Dose: Infused Vancomycin HCl 1,000 mg/ (Sodium Chloride) 250 mls @ 250 mls/hr IV Q24H [facility] Last Admin: 12/28/21 08:56 Dose: 250 mls/hr Sodium Chloride (Sodium Chloride 0.9%) 250 mls @ 20 mls/hr IV .[id number] [facility] Last Admin: 12/28/21 05:37 Dose: Not Given Diltiazem HCl 125 mg/ Dextrose 125 mls @ 5 mls/hr IV Q24H [facility]; Protocol Last Titration: 12/28/21 05:37 Dose: 0 mg/hr, 0 mls/hr Insulin Human Lispro (Insulin Lispro 1 Unit/0.01 Ml Unit) 0 unit SQ ACHS [facility]; Protocol Last Admin: 12/28/21 07:54 Dose: 3 units Levalbuterol HCl (Levalbuterol 0.63 Mg/3 Ml Ampul.Neb) 1.25 mg NEB Q4HRT [facility] Last Admin: 12/28/21 07:40 Dose: 1.25 mg Levothyroxine Sodium (Levothyroxine 50 Mcg Tablet) 50 mcg PO QAMAC [facility] Last Admin: 12/28/21 08:11 Dose: 50 mcg Lorazepam (Lorazepam 1 Mg Tablet) 1 mg PO BIDP PRN PRN Reason: Anxiety Methocarbamol (Methocarbamol 500 Mg Tablet) 500 mg PO TID PRN PRN Reason: Spasms Last Admin: 12/27/21 21:34 Dose: 500 mg Metoprolol Tartrate (Metoprolol Tartrate 50 Mg Tablet) 50 mg PO BID [facility] Last Admin: 12/28/21 08:12 Dose: 50 mg Montelukast Sodium (Montelukast 10 Mg Tablet) 10 mg PO QPM [facility] Last Admin: 12/27/21 21:34 Dose: 10 mg Ondansetron HCl (Ondansetron 4 Mg/2 Ml Vial) 4 mg IV Q4-6HP PRN; Protocol PRN Reason: Nausea And Vomiting Pantoprazole Sodium (Pantoprazole 40 Mg Packet) [facility] Last Admin: 12/28/21 08:47 Dose: Not Given Prednisone (Prednisone 20 Mg Tablet) [facility] Last Admin: 12/28/21 08:11 Dose: 40 mg Senna (Sennosides 1 Tablet) 1 tab PO DAILY [facility] Last Admin: 12/28/21 08:44 Dose: Not Given Sodium Chloride (0.9 % Sodium Chloride 10 Ml Syringe) 10 ml IV Q8 [facility] Last Admin: 12/28/21 05:51 Dose: 10 ml Topiramate (Topiramate 25 Mg Tablet) 25 mg PO BID PRN PRN Reason: Seizure Activity Vancomycin HCl (Vancomycin Per Pharmacy) 1 [place] [facility] [place] Vitamin B Complex (Vitamin B Complex 1 Capsule) 1 cap PO DAILY [facility] Last Admin: 12/28/21 08:10 Dose: 1 cap Vitamin D (Vitamin D3 25 Mcg Tablet) 50 mcg PO DAILY [facility] Last Admin: 12/28/21 08:12 Dose: 50 mcg A/P Assessment and plan (1) Depression with anxiety: Status: Acute (2) Asthma: Status: Chronic (3) COPD exacerbation: Status: Acute (4) Community acquired pneumonia: Status: Acute (5) Crohn disease: Status: Chronic (6) Hypertension, essential: Status: Chronic (7) Hyperlipidemia: Status: Chronic (8) Sepsis: Status: Chronic (9) Hypothyroidism: Status: Chronic (10) Diabetes mellitus with neuropathy: Status: Chronic Qualifiers: Diabetes mellitus type: type 2 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 Community acquired pneumonia, sepsis criteria: Supplemental oxygen therapy as needed titrate to achieve spo2>=88% Serial lactic acid Procalcitonin level Blood culture cbc w/ auto diff in the morning to trend WBC Vancomycin Meropenem Status post IV fluid boluses given in the ED, to be followed by normal saline at 100 cc/h 2. COPD exacerbation: Supplemental oxygen therapy as needed titrate to achieve spo2>=88% Vancomycin Meropenem DuoNEB NEB scheduled Montelukast Prednisone 3. Uncontrolled atrial fibrillation, likely triggered by infection: Treat underlying infection, see #[address] angio chest negative for PE Diltiazem 20mg IV once Diltiazem drip Metoprolol tartrate [id number] score of 5. Discussed with patient the need to start anticoag ulations, patient would like to do further discussions with her PCP later 4. Hyponatremia: Status post IV fluid boluses given in the ED, to be followed by normal saline at 100 cc/h Serum sodium level check every 8 hours. Goal of correction 8-10 points in the first 24 hours to avoid overcorrection with [employer] consequences such as central pontine myelinolysis 5. Depression with anxiety: Continue duloxetine 6. Acquired hypothyroidism: Continue thyroid replacement therapy 7. History of Crohn's disease: Continue azathioprine 8. Type 2 diabetes mellitus: Hemoglobin A1c Hold oral hypoglycemics SSI AC HS Accu Chek AC HS Hypoglycemia protocol Diabetic diet 9. History of essential hypertensions: Continue metoprolol tartrate, titrate dosage as tolerated/needed Diltiazem 20mg IV once Diltiazem drip 10. Dyslipidemia: Continue statin therapy GI ppx: Protonix DVT ppx: Lovenox Code: Full Prognosis: guarded Disposition: inpatient ICU Critical Care Time: 1hr Time Spent With Patient Time: Total time spent is greater than 50% in coordination of care (as documented) at patient's floor/unit and/or counseling patient: Total time spent with greater than 50% in coordination of care (as documented) at patient's floor/unit and/or counseling patient:: 35 - 50 minutes QUALITY VTE Deep Vein Thrombosis/Pulmonary Embolism Present on Admission: No
--- NOTE | 2021-12-28 09:21 | Cat Scan Report ---
History: COVID symptoms, elevated serum d-dimer level, former smoker, Crohn's disease TECHNIQUE: Following injection of intravenous nonionic contrast the chest was imaged during the pulmonary arterial phase. Sagittal coronal and MIPS images were created. The radiation exposure was limited using dose reduction technology. FINDINGS: The pulmonary arteries are normal without evidence of emboli. Pulmonary arteries normal in caliber. There is a random distribution of groundglass alveolar infiltrates in both lungs. There is dense consolidation in the posterior basal segments of both lower lobes with air bronchograms. No lung mass is detected. There is a small layering left-sided pleural effusion. Trachea and bronchi are normal. The heart size is normal. A moderate amount of calcified plaque is present in the coronary arteries with the greatest involvement in the left anterior descending. Aorta is normal caliber and there is also plaque formation in the aortic arch. The patient has bilateral shoulder prosthesis. The spine has a kyphotic curvature. 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 IMPRESSION: No evidence of pulmonary emboli Bilateral pulmonary infiltrates. The pattern is highly suggestive of COVID pneumonia Interpreted and Authenticated by: Gurwinder Carreno 12/28/21
[2021-12-28] MEDS: DIGOXIN 125 MCG TABLET PO SCH (14:22)
[2021-12-28] MEDS: BENZONATATE 100 MG CAPSULE PO PRN (14:55)
[2021-12-28] MEDS: LEVALBUTEROL 1.25 MG/3 ML AMPUL.NEB NEB SCH ×3 (15:20→23:05)
[2021-12-28] MEDS: ACETAMINOPHEN 325 MG TABLET PO PRN (16:47)
[2021-12-28] MEDS: METHOCARBAMOL 500 MG TABLET PO PRN (16:48)
[2021-12-28] MEDS: guaiFENesin/DEXTROMETHORPHAN ORAL SOL PO PRN (19:06)
[2021-12-28] MEDS ORDERED: GABAPENTIN 300 MG CAPSULE PO PRN (19:38)
[2021-12-28] MEDS: MONTELUKAST 10 MG TABLET PO SCH (20:50)
[2021-12-28] MEDS: LORazepam 1 MG TABLET PO PRN (21:03)
[2021-12-29] MEDS: LEVALBUTEROL 1.25 MG/3 ML AMPUL.NEB NEB SCH ×6 (03:41→23:10)
[2021-12-29] MEDS: 0.9 % SODIUM CHLORIDE 10 ML SYRINGE IV SCH ×3 (05:46→21:30)
[2021-12-29] MEDS: MEROPENEM 1 GM in 0.9 % SODIUM CHLORIDE 50 ML IV SCH ×3 (05:46→21:20)
[2021-12-29] MEDS: 0.9 % SODIUM CHLORIDE 250 ML IV SCH ×2 (05:47→18:14)
[2021-12-29] MEDS: ACETAMINOPHEN 325 MG TABLET PO PRN (06:29)
[2021-12-29] MEDS: BENZONATATE 100 MG CAPSULE PO PRN ×2 (06:29→13:49)
[2021-12-29] MEDS: LEVOTHYROXINE 50 MCG TABLET PO SCH (06:29)
[2021-12-29] MEDS: 0.9 % SODIUM CHLORIDE 1,000 ML IV SCH ×2 (07:43→18:43)
[2021-12-29 07:48] LABS: Basophils # (Auto) 0.06 K/mcL (0.00-0.30); Basophils % (Auto) 0.2 % (0.0-2.0); Eosinophils # (Auto) 0 K/mcL (0.00-0.70); Eosinophils % (Auto) 0 % (0.0-7.0); Hematocrit 28.6 % (34.1-44.9); Hemoglobin 9.3 g/dL (11.2-15.7); Lymphocytes # (Auto) 2.02 K/mcL (1.50-4.80); Lymphocytes % (Auto) 7.2 % (15.5-49.0); Mean Cell Volume 92.9 fL (80.0-100.0); Mean Corpuscular HGB Conc 32.5 g/dL (31.0-36.0); Mean Platelet Volume 9.9 fL (7.4-10.4); Monocytes # (Auto) 1.41 K/mcL (0.10-0.90); Neutrophils % (Auto) 82.6 % (38.0-78.0); Platelet Count 244 K/mcL (140-440); RBC 3.08 M/mcL (3.59-5.38); Red Cell Distribution Width 14.5 % (11.5-14.5)
[2021-12-29 07:51] LABS: ALT/SGPT 995 U/L (<40); AST/SGOT 3132 U/L (<32); Albumin 2.8 gm/dL (3.2-5.2); Albumin/Globulin Ratio 0.9 (1.0-2.3); Alkaline Phosphatase 161 U/L (39-117); Bilirubin,Total 0.5 mg/dL (0.1-1.0); Blood Urea Nitrogen 16 mg/dL (8-23); Calcium 9.6 mg/dL (8.6-10.4); Carbon Dioxide 17 mmol/L (22-30); Chloride 90 mmol/L (96-108); Globulin 3.2 gm/dL (2.2-3.7); Glomerular Filtration Rate 58; Glucose 127 mg/dL (70-105)
--- NOTE | 2021-12-29 09:14 | Internal Med Progress Note ---
SUBJECTIVE Subjective Patient information: Note initiated : 12/29/21 at 9:09 am Service Date, if different from initiated Date: [] Patient: Ashlie Sharpe 86 y/o F admitted on 12/27/21 for Covid symptoms. Chief Complaint: [] Interval history: Ms. Sharpe is a 86 year old F history of Crohn's disease, depressions, anxiety, hypothyroidism, type 2 diabetes, essential hypertensions, mixed dyslipidemia, atrial fibrillation's, asthma, COPD, presenting with 3 weeks history of shortness of breath. She is vaccinated against COVID-pneumonia, influenza, and pneumococcus. Denies sick contact or recent travel. She is complain of 3 weeks history of shortness of breath accompanied with productive cough with green sputum productions, respiratory wheezings, subjective fever and chills. She is also complaining of generalized muscle aches and general weakness. She denies any chest pain or palpitations. She denies any GI symptoms such as nausea vomiting or change in her appetite. Vital signs significant for low-grade fever T-max 37.6, tachycardia with heart rate up to the 170s beats per minutes, and oxygen saturation in the mid 90s at rest and high 80s when ambulates. Labs significant for leukocytosis with WBC 18.3. Serum lactic acid 1.9. Influenza AMB, as well as COVID screening test negative. Serum sodium level 124. Chest x-ray showing bilateral infiltrates. 12/28: [place] negative. CT angio chest negative for PE. Serum sodium level 124. Afebrile overnight. On 1L/min oxygen. Cultures no growth to date. Diltiazem drip was being switched off at around 0530 this morning. Patient's degree of shortness of breath has improved. c/o productive cough with yellow/green sputum. c/o wheezing. Denies chest pain or palpitation. Denies fever chills or diaphoresis. Diltiazem drip stands by. Metoprolol tartrate, titrate dosage as tolerated. Patient would like to defer the decision of starting anticoagulants with her PCP. Continue supplemental oxygen, Vancomycin/Zosyn for pneumonia. Continue bronchodilators and Prednisone for COPD with exacerbation. 12/29: Afebrile overnight. Still on 2 L/min of oxygen. However, patient is have sub jective and objective signs of increased work of breathing. VBG showing pH of 7.26, bicarb 15.8, PO2 23, PCO2 34.7, and lactic acid 2.0. She is also observed to have tachypnea with rate of breathing in the high 20s, and abdominal breathing pattern noted. Patient is complaining of shortness of breath as well as lethargy. She is able to follow verbal command though however. Also of note, her serum sodium levels continue to trend down now 120 despite normal saline given at a rate of 100 cc/h. Her heart rate is in the 100s beats per minutes with blood pressure mostly with systolic of 100 and diastolic of 60 mmHg. Repeat chest x-ray. Start the patient on BiPAP and see if the patient could tolerated. Repeat ABG 30 minutes after starting BiPAP. MRSA screening negative. Will DC vancomycin while keeping meropenem for her pneumonia. We will switched steroid from p.o. prednisone to IV Solu-Medrol. Will consider metoprolol and digoxin for atrial fibrillation's We will continue normal saline at 100 cc/h infusions while checking serum sodium level sequentially. Overall condition still very guarded. Constitutional Vitals: Vital Signs Temp Pulse Resp BP Pulse Ox O2 Del Method O2 Flow Rate 36.2 C 103 H 29 H 105/63 96 2 12/29/21 08:01 12/29/21 06:57 12/29/21 08:01 12/29/21 08:01 12/29/21 08:01 12/29/21 07:00 12/29/21 07:00 Period Temp Pulse Resp BP Sys/Matt Pulse Ox O2 Del Method O2 Flow Rate Last 24 Hr 35.9 C-36.6 C 69-119 14-36 85-199/44-167 90-100 Nasal Cannula- Room Air 1-2 Intake and Output 12/28/21 12/29/21 12/29/21 21:59 05:59 13:59 Intake Total 2730 575 1050 Output Total 400 250 1 Balance 2330 325 1049 Weight 74.871 kg Intake & Output: Intake & Output 12/28/21 12/29/21 12/29/21 21:59 05:59 13:59 Intake Total 2730 575 1050 Output Total 400 250 1 Balance 2330 325 1049 Weight 74.871 kg Intake: Nourishment/Supplement quantity 240 (ml) IV 1050 50 1050 Sodium Chloride 0.9% 1,000 ml @ 1000 1000 100 mls/hr IV .Q10H [facility] Rx#: [id number] Merrem 1 gm In Sodium Chloride 50 50 50 0.9% 50 ml @ 100 mls/hr IV Q8H [facility] Rx#:[id number] Oral 1440 525 0 Output: Void Amount 400 250 # of times incontinent of urine 1 Other: Meal Dinner Percent of Meal Consumed 75% Feeding Ability Independent Nourishment/Supplement name glucerna Urine Appearance Clear Clear Urine Color Dark Yellow Dark Yellow Stool Size Moderate Smear Stool Color Brown Yellow Stool Consistency Soft Formed Formed # Voids 1 # Bowel Movements 1 1 General appearance: cooperative, mild distress and obese Exam: slight lethargic Head Head exam: Present atraumatic and normal inspection Eye Eye exam: Present normal appearance ENT ENT exam: Present mucous membranes moist, normal exam and normal external ear exam Additional comments: Nasal cannula in place Neck Neck exam: Present normal inspection Respiratory Respiratory exam: Present decreased breath sounds, respiratory distress and rhon chi Additional comments: tachypnea Cardiovascular Cardiovascular exam: Present irregular rhythm and tachycardia GI/Abdominal GI/Abdominal exam: Present normal bowel sounds Back Exam Back exam: Present normal inspection Neurological Exam Neurological exam: Present alert and oriented X3 Additional comments: slight lethargic Skin Skin exam: Present intact and warm OBJ DATA Labs CBC & Chem 7: 12/29/21 05:49 12/29/21 05:49 Labs: Abnormal Lab Results 12/29/21 12/29/21 12/29/21 08:47 05:49 05:49 WBC 28.0 H RBC 3.08 L Hgb 9.3 L Hct 28.6 L POC Hct Immature Gran % (Auto) 5.0 H Neut % (Auto) 82.6 H Lymph % (Auto) 7.2 L Lymph # (Auto) [place] # (Auto) 1.41 H Immature Gran # 1.41 H Absolute Neutrophils 24.47 H D-Dimer POC VBG pH 7.26 L POC VBG pCO2 at Temp 34.7 L POC VBG pO2 23 L POC VBG HCO3 15.8 L POC VBG Total CO2 17.0 L POC Venous O2 Sat 34.0 L POC VBG Base Excess -11.0 L POC Sodium Sodium 120 L POC Chloride Chloride 90 L Carbon Dioxide 17 L Glucose 127 H POC Glucose POC WB Ioniz Calcium AST 3132 H ALT 995 H Alkaline Phosphatase 161 H Total Protein Albumin 2.8 L Albumin/Globulin Ratio 0.9 L Procalcitonin POC Troponin I 12/28/21 12/28/21 12/28/21 13:53 05:16 05:16 WBC RBC Hgb Hct POC Hct Immature Gran % (Auto) Neut % (Auto) Lymph % (Auto) Lymph # (Auto) [place] # (Auto) Immature Gran # Absolute Neutrophils D-Dimer POC VBG pH POC VBG pCO2 at Temp POC VBG pO2 POC VBG HCO3 POC VBG Total CO2 POC Venous O2 Sat POC VBG Base Excess POC Sodium Sodium 123 L 124 L 124 L POC Chloride Chloride 93 L Carbon Dioxide 20 L Glucose 176 H POC Glucose POC WB Ioniz Calcium AST ALT Alkaline Phosphatase Total Protein 5.8 L Albumin 2.7 L Albumin/Globulin Ratio 0.9 L Procalcitonin POC Troponin I 12/28/21 12/28/21 12/27/21 05:16 00:57 21:51 WBC 13.6 H RBC 2.71 L Hgb 8.1 L Hct 25.4 L POC Hct Immature Gran % (Auto) 1.6 H Neut % (Auto) 87.3 H Lymph % (Auto) 7.5 L Lymph # (Auto) 1.01 L [place] # (Auto) Immature Gran # 0.22 H Absolute Neutrophils 12.04 H D-Dimer POC VBG pH POC VBG pCO2 at Temp POC VBG pO2 POC VBG HCO3 POC VBG Total CO2 POC Venous O2 Sat POC VBG Base Excess POC Sodium Sodium 121 L 123 L POC Chloride Chloride Carbon Dioxide Glucose POC Glucose POC WB Ioniz Calcium AST ALT Alkaline Phosphatase Total Protein Albumin Albumin/Globulin Ratio Procalcitonin POC Troponin I 12/27/21 12/27/21 12/27/21 12:52 12:50 12:48 WBC RBC Hgb Hct POC Hct 29.0 L Immature Gran % (Auto) Neut % (Auto) Lymph % (Auto) Lymph # (Auto) [place] # (Auto) Immature Gran # Absolute Neutrophils D-Dimer POC VBG pH POC VBG pCO2 at Temp 36.6 L POC VBG pO2 POC VBG HCO3 21.9 L POC VBG Total CO2 23.0 L POC Venous O2 Sat POC VBG Base Excess -3.0 L POC Sodium 124 L Sodium POC Chloride 92 L Chloride Carbon Dioxide Glucose POC Glucose 199 H POC WB Ioniz Calcium 1.36 H AST ALT Alkaline Phosphatase Total Protein Albumin Albumin/Globulin Ratio Procalcitonin POC Troponin I 0.01 L 12/27/21 12/27/21 12/27/21 12:35 12:35 12:35 WBC 18.3 H RBC 3.10 L Hgb 9.4 L Hct 28.0 L POC Hct Immature Gran % (Auto) 2.0 H Neut % (Auto) 86.3 H Lymph % (Auto) 7.3 L Lymph # (Auto) 1.33 L [place] # (Auto) Immature Gran # 0.36 H Absolute Neutrophils 16.21 H D-Dimer 2.34 H POC VBG pH POC VBG pCO2 at Temp POC VBG pO2 POC VBG HCO3 POC VBG Total CO2 POC Venous O2 Sat POC VBG Base Excess POC Sodium Sodium POC Chloride Chloride Carbon Dioxide Glucose POC Glucose POC WB Ioniz Calcium AST ALT Alkaline Phosphatase Total Protein Albumin Albumin/Globulin Ratio Procalcitonin 2.64 H POC Troponin I Meds: Medications Acetaminophen (Acetaminophen 325 Mg Tablet) 650 mg PO Q4-6HP PRN; Protocol PRN Reason: Per Pain Protocol/Fever > 101 Last Admin: 12/29/21 06:29 Dose: 650 mg Azathioprine (Azathioprine 50 Mg Tablet) 100 mg PO QDAY [facility] Last Admin: 12/28/21 08:10 Dose: 100 mg Benzonatate (Benzonatate 100 Mg Capsule) 100 mg PO TIDP PRN PRN Reason: Cough Last Admin: 12/29/21 06:29 Dose: 100 mg Dextrose (Dextrose 50% 50 Ml Vial) 0 ml IV UD PRN PRN Reason: Per Sliding Scale Diagnostic Test (Pha) (Accu-Chek 1 Each Strip) 1 each FS ACHS [facility] Last Admin: 12/28/21 20:51 Dose: 1 each Digoxin (Digoxin 125 Mcg Tablet) 125 mcg PO DAILY@1400 [facility] Last Admin: 12/28/21 14:22 Dose: 125 mcg Docusate Sodium (Docusate Sodium 100 Mg Capsule) 100 mg PO BID [facility] Last Admin: 12/28/21 20:50 Dose: 100 mg Duloxetine HCl (Duloxetine 30 Mg Capsule) 30 mg PO BID [facility] Last Admin: 12/28/21 20:50 Dose: 30 mg Enoxaparin Sodium (Enoxaparin 40 Mg/0.4 Ml Syringe) 40 mg SQ DAILY [facility] Last Admin: 12/28/21 08:12 Dose: 40 mg Gabapentin (Gabapentin 300 Mg Capsule) 300 mg PO TIDP PRN PRN Reason: Pain Gemfibrozil (Gemfibrozil 600 Mg Tablet) 600 mg PO BID [facility] Last Admin: 12/28/21 20:50 Dose: 600 mg Glucose (Dextrose 31 Gm Oral.Susp) 15 gm PO PRN PRN PRN Reason: Hypoglycemia Guaifenesin (Guaifenesin/Dextromethorphan Oral Gege) 10 ml PO Q4HP PRN PRN Reason: Cough Last Admin: 12/28/21 19:06 Dose: 10 ml Sodium Chloride (Sodium Chloride 0.9%) 1,000 mls @ 100 mls/hr IV .Q10H [facility] Last Admin: 12/29/21 07:43 Dose: 100 mls/hr Meropenem 1 gm/ Sodium (Chloride) 50 mls @ 100 mls/hr IV Q8H [facility]; Protocol Last Infusion: 12/29/21 07:43 Dose: Infused Vancomycin HCl 1,000 mg/ (Sodium Chloride) 250 mls @ 250 mls/hr IV Q24H [facility] Last Infusion: 12/28/21 10:00 Dose: Infused Sodium Chloride (Sodium Chloride 0.9%) 250 mls @ 20 mls/hr IV .[id number] [facility] Last Admin: 12/29/21 05:47 Dose: Not Given Diltiazem HCl 125 mg/ Dextrose 125 mls @ 5 mls/hr IV Q24H [facility]; Protocol Last Admin: 12/28/21 18:15 Dose: Not Given Insulin Human Lispro (Insulin Lispro 1 Unit/0.01 Ml Unit) 0 unit SQ ACHS [facility]; Protocol Last Admin: 12/28/21 20:50 Dose: 3 units Levalbuterol HCl (Levalbuterol 1.25 Mg/3 Ml Ampul.Neb) 1.25 mg NEB Q4HRT [facility] Last Admin: 12/29/21 06:56 Dose: 1.25 mg Levothyroxine Sodium (Levothyroxine 50 Mcg Tablet) 50 mcg PO QAMAC [facility] Last Admin: 12/29/21 06:29 Dose: 50 mcg Lorazepam (Lorazepam 1 Mg Tablet) 1 mg PO BIDP PRN PRN Reason: Anxiety Last Admin: 12/28/21 21:03 Dose: 1 mg Methocarbamol (Methocarbamol 500 Mg Tablet) 500 mg PO TID PRN PRN Reason: Spasms Last Admin: 12/28/21 16:48 Dose: 500 mg Metoprolol Tartrate (Metoprolol Tartrate 50 Mg Tablet) 75 mg PO BID [facility] Last Admin: 12/28/21 20:50 Dose: 75 mg Montelukast Sodium (Montelukast 10 Mg Tablet) 10 mg PO QPM [facility] Last Admin: 12/28/21 20:50 Dose: 10 mg Ondansetron HCl (Ondansetron 4 Mg/2 Ml Vial) 4 mg IV Q4-6HP PRN; Protocol PRN Reason: Nausea And Vomiting Pantoprazole S[facility] ([facility] 40 Mg Packet) [facility] Last Admin: 12/28/21 08:47 Dose: Not Given Prednisone (Prednisone 20 Mg Tablet) 40 mg PO [facility] Last Admin: 12/28/21 08:11 Dose: 40 mg Senna (Sennosides 1 Tablet) 1 tab PO DAILY [facility] Last Admin: 12/28/21 08:44 Dose: Not Given Sodium Chloride (0.9 % Sodium Chloride 10 Ml Syringe) 10 ml IV Q8 [facility] Last Admin: 12/29/21 05:46 Dose: 10 ml Topiramate (Topiramate 25 Mg Tablet) 25 mg PO BID PRN PRN Reason: Seizure Activity Vancomycin HCl (Vancomycin Per Pharmacy) 1 order IV UD [facility]; Protocol Vitamin B Complex (Vitamin B Complex 1 Capsule) 1 cap PO DAILY [facility] Last Admin: 12/28/21 08:10 Dose: 1 cap Vitamin D (Vitamin D3 25 Mcg Tablet) 50 mcg PO DAILY [facility] Last Admin: 12/28/21 08:12 Dose: 50 mcg A/P Assessment and plan (1) Depression with anxiety: Status: Acute (2) Asthma: Status: Chronic (3) COPD exacerbation: Status: Acute (4) Community acquired pneumonia: Status: Acute (5) Crohn disease: Status: Chronic (6) Hypertension, essential: Status: Chronic (7) Hyperlipidemia: Status: Chronic (8) Sepsis: Status: Chronic (9) Hypothyroidism: Status: Chronic (10) Diabetes mellitus with neuropathy: Status: Chronic Qualifiers: Diabetes mellitus type: type 2 Diabetes mellitus chcf insulin use: without chcf use Qualified Code(s): E11.40 - Type 2 diabetes mellitus with diabetic neuropathy, unspecified (11) Hypothyroidism (acquired): Status: Acute (12) Atrial fibrillation: Status: Acute (13) Hyponatremia: Status: Acute Narrative A/P Narrative: Assessment and Plans: 1. Community acquired pneumonia, sepsis criteria: Supplemental oxygen therapy as needed titrate to achieve spo2>=88% Serial lactic acid Procalcitonin level Blood culture, no growth to date cbc w/ auto diff in the morning to trend WBC MRSA PCR negative, d/c Vancomycin Continue Meropenem Status post IV fluid boluses given in the ED, to be followed by normal saline at 100 cc/h Repeat CXR 12/29 BiPAP, repeat ABG 2. COPD exacerbation: Supplemental oxygen therapy as needed titrate to achieve spo2>=88% Meropenem Xopenex NEB scheduled Montelukast d/c Prednisone, switch to Solu-Medrol Repeat CXR 12/29 BiPAP, repeat ABG 3. Uncontrolled atrial fibrillation, likely triggered by infection: Treat underlying infection, see #[address] angio chest negative for PE Diltiazem 20mg IV once Diltiazem drip stands by Metoprolol tartrate 75mg PO BID Digoxin [id number] score of 5. Discussed with patient the need to start anticoag ulations, patient would like to do further discussions with her PCP later 4. Hyponatremia: Status post IV fluid boluses given in the ED, to be followed by normal saline at 100 cc/h Serum sodium level check every 8 hours. Goal of correction 8-10 points in the first 24 hours to avoid overcorrection with [employer] consequences such as central pontine myelinolysis 5. Depression with anxiety: Continue duloxetine 6. Acquired hypothyroidism: Continue thyroid replacement therapy 7. History of Crohn's disease: Continue azathioprine 8. Type 2 diabetes mellitus: Hemoglobin A1c Hold oral hypoglycemics SSI AC HS Accu Chek AC HS Hypoglycemia protocol Diabetic diet 9. History of essential hypertensions: Continue metoprolol tartrate 75mg PO BID Diltiazem 20mg IV once Diltiazem drip stands by 10. Dyslipidemia: Continue statin therapy GI ppx: Protonix DVT ppx: Lovenox Code: Full Prognosis: extremely guarded Disposition: inpatient ICU Critical Care Time: 1hr Time Spent With Patient Time: Total time spent is greater than 50% in coordination of care (as documented) at patient's floor/unit and/or counseling patient: Total time spent with greater than 50% in coordination of care (as documented) at patient's floor/unit and/or counseling patient:: 50 - 70 minutes Critical Care Time: Yes Total Critical Care Time: 60 QUALITY VTE Deep Vein Thrombosis/Pulmonary Embolism Present on Admission: No
[2021-12-29] MEDS ORDERED: LORazepam 2 MG/ML VIAL IV PRN (09:21)
[2021-12-29] MEDS: INSULIN LISPRO 1 UNIT/0.01 ML UNIT SQ SCH ×4 (09:27→20:59)
[2021-12-29] MEDS: predniSONE 20 MG TABLET PO SCH (09:28)
[2021-12-29] MEDS: VANCOMYCIN 1,000 MG in 0.9 % SODIUM CHLORIDE 250 ML IV SCH (09:28)
[2021-12-29] MEDS: PANTOPRAZOLE 40 MG PACKET PO SCH (09:28)
--- NOTE | 2021-12-29 09:34 | XRay Report ---
HISTORY: Pneumonia, Covid symptoms, short of breath FINDINGS: There are bilateral infiltrates, predominantly involving the lower lobes. The greatest consolidation is behind the left heart border. There are multiple overlying artifacts. No pneumothorax is present. Lung volumes are normal. Comparison with the recent chest CT done on 12/27/21 shows no change. IMPRESSION: Stable moderate bilateral pneumonia Interpreted and Authenticated by: Gurwinder Carreno 12/29/21
[2021-12-29] MEDS ORDERED: methylPREDNISolone SOD SUCC 125 MG/2 ML VIAL IV ONE (10:37)
[2021-12-29] MEDS: VITAMIN D3 25 MCG TABLET PO SCH ×2 (11:33→17:53)
[2021-12-29] MEDS: METOPROLOL TARTRATE 50 MG TABLET PO SCH ×2 (11:33→21:19)
[2021-12-29] MEDS: ENOXAPARIN 40 MG/0.4 ML SYRINGE SQ SCH (11:33)
[2021-12-29] MEDS: DULoxetine 30 MG CAPSULE PO SCH ×2 (11:38→21:19)
[2021-12-29] MEDS: azaTHIOprine 50 MG TABLET PO SCH (11:38)
[2021-12-29] MEDS: VITAMIN B COMPLEX 1 CAPSULE PO SCH (11:39)
[2021-12-29] MEDS: GEMFIBROZIL 600 MG TABLET PO SCH ×2 (11:39→21:19)
[2021-12-29] MEDS: SENNOSIDES 1 TABLET PO SCH (12:16)
[2021-12-29] MEDS: DOCUSATE SODIUM 100 MG CAPSULE PO SCH ×2 (12:17→20:59)
[2021-12-29 13:43] LABS: Appearance,Urine Cloudy (Clear); Bilirubin,Urine Negative (Negative); Color,Urine Yellow; Culture Indicated,Urine No; Glucose,Urine (UA) Negative (Negative); Ketones,Urine Trace mg/dL (Negative); Leukocyte Esterase,Urine Negative /uL (Negative); Mucus,Urine FEW /hpf; Nitrate,Urine Negative (Negative); PH,Urine 5.5 (5.0-9.0); Specific Gravity,Urine 1.025 (1.000-1.035); Urine Blood Small ery/mcL (Negative); Urine Granular Cast 94 /lph (0-0); Urine Hyaline Cast 5 /lph (0-2); Urine RBC 1 /hpf (0-3); Urine Squamous Epithelial Cell 0 /hpf (0-4); Urine Transitional Epi Cells < 1 /hpf (0-2); Urine WBC 2 /hpf (0-4); Urobilinogen,Urine Normal
[2021-12-29] MEDS: DIGOXIN 125 MCG TABLET PO SCH (13:49)
[2021-12-29] MEDS: methylPREDNISolone SOD SUCC 125 MG/2 ML VIAL IV SCH ×2 (14:31→21:30)
[2021-12-29] MEDS ORDERED: FUROSEMIDE 20 MG/2 ML VIAL IV SCH (16:00)
[2021-12-29] MEDS: DILTIAZEM 125 MG in DEXTROSE 5% IN WATER 100 ML IV SCH (18:11)
[2021-12-29] MEDS: MONTELUKAST 10 MG TABLET PO SCH (21:19)
[2021-12-30] MEDS: LEVALBUTEROL 1.25 MG/3 ML AMPUL.NEB NEB SCH ×6 (03:01→23:00)
[2021-12-30 05:55] LABS: Basophils # (Auto) 0.06 K/mcL (0.00-0.30); Basophils % (Auto) 0.2 % (0.0-2.0); Eosinophils # (Auto) 0.11 K/mcL (0.00-0.70); Eosinophils % (Auto) 0.4 % (0.0-7.0); Hematocrit 32.2 % (34.1-44.9); Hemoglobin 9.9 g/dL (11.2-15.7); Lymphocytes % (Auto) 3.4 % (15.5-49.0); Mean Cell Volume 98.8 fL (80.0-100.0); Mean Corpuscular HGB Conc 30.7 g/dL (31.0-36.0); Mean Platelet Volume 10.7 fL (7.4-10.4); Monocytes # (Auto) 0.25 K/mcL (0.10-0.90); Platelet Count 153 K/mcL (140-440); RBC 3.26 M/mcL (3.59-5.38); Red Cell Distribution Width 14.7 % (11.5-14.5); WBC 26.2 K/mcL (4.5-11.0)
[2021-12-30] MEDS: methylPREDNISolone SOD SUCC 125 MG/2 ML VIAL IV SCH ×3 (06:02→22:52)
[2021-12-30] MEDS: 0.9 % SODIUM CHLORIDE 10 ML SYRINGE IV SCH ×3 (06:02→22:48)
[2021-12-30] MEDS: MEROPENEM 1 GM in 0.9 % SODIUM CHLORIDE 50 ML IV SCH ×2 (06:02→17:14)
[2021-12-30 06:49] LABS: ALT/SGPT 2400 U/L (<40); AST/SGOT 7383 U/L (<32); Albumin 2.6 gm/dL (3.2-5.2); Albumin/Globulin Ratio 0.8 (1.0-2.3); Alkaline Phosphatase 297 U/L (39-117); Bilirubin,Total 0.8 mg/dL (0.1-1.0); Blood Urea Nitrogen 25 mg/dL (8-23); Calcium 8.7 mg/dL (8.6-10.4); Carbon Dioxide 13 mmol/L (22-30); Chloride 91 mmol/L (96-108); Globulin 3.2 gm/dL (2.2-3.7); Glomerular Filtration Rate 34; Glucose 174 mg/dL (70-105)
--- NOTE | 2021-12-30 08:27 | Internal Med Progress Note ---
SUBJECTIVE Subjective Patient information: Note initiated : 12/30/21 at 8:22 am Service Date, if different from initiated Date: [] Patient: Ashlie Sharpe 86 y/o F admitted on 12/27/21 for Covid symptoms. Chief Complaint: [] Interval history: Ms. Sharpe is a 86 year old F history of Crohn's disease, depressions, anxiety, hypothyroidism, type 2 diabetes, essential hypertensions, mixed dyslipidemia, atrial fibrillation's, asthma, COPD, presenting with 3 weeks history of shortness of breath. She is vaccinated against COVID-pneumonia, influenza, and pneumococcus. Denies sick contact or recent travel. She is complain of 3 weeks history of shortness of breath accompanied with productive cough with green sputum productions, respiratory wheezings, subjective fever and chills. She is also complaining of generalized muscle aches and general weakness. She denies any chest pain or palpitations. She denies any GI symptoms such as nausea vomiting or change in her appetite. Vital signs significant for low-grade fever T-max 37.6, tachycardia with heart rate up to the 170s beats per minutes, and oxygen saturation in the mid 90s at rest and high 80s when ambulates. Labs significant for leukocytosis with WBC 18.3. Serum lactic acid 1.9. Influenza AMB, as well as COVID screening test negative. Serum sodium level 124. Chest x-ray showing bilateral infiltrates. 12/28: [place] negative. CT angio chest negative for PE. Serum sodium level 124. Afebrile overnight. On 1L/min oxygen. Cultures no growth to date. Diltiazem drip was being switched off at around 0530 this morning. Patient's degree of shortness of breath has improved. c/o productive cough with yellow/green sputum. c/o wheezing. Denies chest pain or palpitation. Denies fever chills or diaphoresis. Diltiazem drip stands by. Metoprolol tartrate, titrate dosage as tolerated. Patient would like to defer the decision of starting anticoagulants with her PCP. Continue supplemental oxygen, Vancomycin/Zosyn for pneumonia. Continue bronchodilators and Prednisone for COPD with exacerbation. 12/29: Afebrile overnight. Still on 2 L/min of oxygen. However, patient is have sub jective and objective signs of increased work of breathing. VBG showing pH of 7.26, bicarb 15.8, PO2 23, PCO2 34.7, and lactic acid 2.0. She is also observed to have tachypnea with rate of breathing in the high 20s, and abdominal breathing pattern noted. Patient is complaining of shortness of breath as well as lethargy. She is able to follow verbal command though however. Also of note, her serum sodium levels continue to trend down now 120 despite normal saline given at a rate of 100 cc/h. Her heart rate is in the 100s beats per minutes with blood pressure mostly with systolic of 100 and diastolic of 60 mmHg. Repeat chest x-ray. Start the patient on BiPAP and see if the patient could tolerated. Repeat ABG 30 minutes after starting BiPAP. MRSA screening negative. Will DC vancomycin while keeping meropenem for her pneumonia. We will switched steroid from p.o. prednisone to IV Solu-Medrol. Will consider metoprolol and digoxin for atrial fibrillation's We will continue normal saline at 100 cc/h infusions while checking serum sodium level sequentially. Overall condition still very guarded. 12/30: Patient is currently on BiPAP. Afebrile overnight. All cultures no growth today. Urine output finally picks up now at around 50 cc/h. Serum creatinine level 1.4. Serum sodium level 119. LFTs continue to elevate. Patient feels like her degree of shortness of breath has improved. Not currently committing of any wheezing or cough. Not currently, never any chest pain or palpitations. Not currently complaining of any fever chills or diaphoresis. Patient is still extremely guarded. We will try to get rid of the BiPAP later today as tolerated. Continue meropenem for her pneumonia. Continue IV Solu-Medrol and Xopenex for COPD exacerbations. Continue metoprolol tartrate and digoxin for atrial fibrillation's. Patient would like to defer the decision to start anticoagulations with her PCP We will continue normal saline at 100 cc/h infusions while checking serum sodium level sequentially. Constitutional Vitals: Vital Signs Temp Pulse Resp BP Pulse Ox O2 Del Method O2 Flow Rate 36.6 C 96 H 22 114/98 98 2 12/30/21 08:00 12/30/21 07:19 12/30/21 08:00 12/30/21 08:00 12/30/21 08:00 12/30/21 07:19 12/29/21 07:00 Period Temp Pulse Resp BP Sys/Matt Pulse Ox O2 Del Method O2 Flow Rate Last 24 Hr 35.9 C-36.6 C 76-121 17-45 79-128/59-98 91-100 BiPAP-BiPAP Intake and Output 12/29/21 12/30/21 12/30/21 21:59 05:59 13:59 Intake Total 1580 50 Output Total 160 358 100 Balance 1420 -358 -50 Weight 76.43 kg Intake & Output: Intake & Output 12/29/21 12/30/21 12/30/21 21:59 05:59 13:59 Intake Total 1580 50 Output Total 160 358 100 Balance 1420 -358 -50 Weight 76.43 kg Intake: IV 1100 50 Sodium Chloride 0.9% 1,000 ml @ 1000 100 mls/hr IV .Q10H [facility] Rx#: [id number] Cardizem 125 mg In Dextrose 5% 0 in Water 100 ml @ 5 MG/HR 5 mls /hr IV Q24H [facility] Rx#:[id number] Merrem 1 gm In Sodium Chloride 100 50 0.9% 50 ml @ 100 mls/hr IV Q8H [facility] Rx#:[id number] Oral 480 Output: Urine Catheter Amount 160 358 100 Other: Urine Appearance Clear Clear Clear Uretheral (Meza) Cloudy Urine Color Pale Light Magdalena Dark Yellow Uretheral (Meza) Bright Yellow Urine Odor Normal Stool Size Moderate Stool Color Brown Stool Consistency Soft Formed # Bowel Movements 1 General appearance: cooperative, no acute distress and obese Exam: slight lethargic Head Head exam: Present atraumatic and normal inspection Eye Eye exam: Present normal appearance ENT ENT exam: Present mucous membranes moist, normal exam and normal external ear exam Additional comments: BiPAP in place Neck Neck exam: Present normal inspection Respiratory Respiratory exam: Present decreased breath sounds and rhonchi; Absent wheezes Cardiovascular Cardiovascular exam: Present irregular rhythm and tachycardia GI/Abdominal GI/Abdominal exam: Present normal bowel sounds Additional comments: Meza catheter in place Back Exam Back exam: Present normal inspection Neurological Exam Neurological exam: Present alert and oriented X3 Skin Skin exam: Present intact and warm OBJ DATA Labs CBC & Chem 7: 12/30/21 05:24 12/30/21 05:24 Labs: Abnormal Lab Results 12/30/21 12/30/21 12/29/21 05:24 05:24 22:18 WBC 26.2 H RBC 3.26 L Hgb 9.9 L Hct 32.2 L POC Hct MCHC 30.7 L RDW 14.7 H MPV 10.7 H Immature Gran % (Auto) 2.0 H Neut % (Auto) 93.0 H Lymph % (Auto) 3.4 L Lymph # (Auto) 0.90 L Gentry # (Auto) Immature Gran # 0.52 H Absolute Neutrophils 24.89 H D-Dimer POC pCO2 POC HCO3 POC Total CO2 POC ABG Base Excess ABG Lactic Acid POC VBG pH POC VBG pCO2 at Temp POC VBG pO2 POC VBG HCO3 POC VBG Total CO2 POC Venous O2 Sat POC VBG Base Excess POC Sodium Sodium 119 L* 120 L POC Chloride Chloride 91 L Carbon Dioxide 13 L BUN 25 H Creatinine 1.4 H Glucose 174 H POC Glucose POC WB Ioniz Calcium AST ALT 2400 H Alkaline Phosphatase 297 H Total Protein 5.8 L Albumin 2.6 L Albumin/Globulin Ratio 0.8 L Procalcitonin Urine Appearance Urine Protein Urine Ketones Urine Occult Blood Hyaline Casts Granular Casts Urine Mucus POC Troponin I 12/29/21 12/29/21 12/29/21 14:00 11:24 10:06 WBC RBC Hgb Hct POC Hct MCHC RDW MPV Immature Gran % (Auto) Neut % (Auto) Lymph % (Auto) Lymph # (Auto) Gentry # (Auto) Immature Gran # Absolute Neutrophils D-Dimer POC pCO2 29.2 L POC HCO3 16.0 L POC Total CO2 17.0 L POC ABG Base Excess -10.0 L ABG Lactic Acid 2.2 H POC VBG pH POC VBG pCO2 at Temp POC VBG pO2 POC VBG HCO3 POC VBG Total CO2 POC Venous O2 Sat POC VBG Base Excess POC Sodium Sodium 119 L* POC Chloride Chloride Carbon Dioxide BUN Creatinine Glucose POC Glucose POC WB Ioniz Calcium AST ALT Alkaline Phosphatase Total Protein Albumin Albumin/Globulin Ratio Procalcitonin Urine Appearance Cloudy A Urine Protein 100 mg/dl A Urine Ketones Trace A Urine Occult Blood Small A Hyaline Casts 5 H Granular Casts 94 H Urine Mucus Few A POC Troponin I 12/29/21 12/29/21 12/29/21 08:47 05:49 05:49 WBC 28.0 H RBC 3.08 L Hgb 9.3 L Hct 28.6 L POC Hct MCHC RDW MPV Immature Gran % (Auto) 5.0 H Neut % (Auto) 82.6 H Lymph % (Auto) 7.2 L Lymph # (Auto) Gentry # (Auto) 1.41 H Immature Gran # 1.41 H Absolute Neutrophils 24.47 H D-Dimer POC pCO2 POC HCO3 POC Total CO2 POC ABG Base Excess ABG Lactic Acid POC VBG pH 7.26 L POC VBG pCO2 at Temp 34.7 L POC VBG pO2 23 L POC VBG HCO3 15.8 L POC VBG Total CO2 17.0 L POC Venous O2 Sat 34.0 L POC VBG Base Excess -11.0 L POC Sodium Sodium 120 L POC Chloride Chloride 90 L Carbon Dioxide 17 L BUN Creatinine Glucose 127 H POC Glucose POC WB Ioniz Calcium AST 3132 H ALT 995 H Alkaline Phosphatase 161 H Total Protein Albumin 2.8 L Albumin/Globulin Ratio 0.9 L Procalcitonin Urine Appearance Urine Protein Urine Ketones Urine Occult Blood Hyaline Casts Granular Casts Urine Mucus POC Troponin I 12/28/21 12/28/21 12/28/21 13:53 05:16 05:16 WBC RBC Hgb Hct POC Hct MCHC RDW MPV Immature Gran % (Auto) Neut % (Auto) Lymph % (Auto) Lymph # (Auto) Gentry # (Auto) Immature Gran # Absolute Neutrophils D-Dimer POC pCO2 POC HCO3 POC Total CO2 POC ABG Base Excess ABG Lactic Acid POC VBG pH POC VBG pCO2 at Temp POC VBG pO2 POC VBG HCO3 POC VBG Total CO2 POC Venous O2 Sat POC VBG Base Excess POC Sodium Sodium 123 L 124 L 124 L POC Chloride Chloride 93 L Carbon Dioxide 20 L BUN Creatinine Glucose 176 H POC Glucose POC WB Ioniz Calcium AST ALT Alkaline Phosphatase Total Protein 5.8 L Albumin 2.7 L Albumin/Globulin Ratio 0.9 L Procalcitonin Urine Appearance Urine Protein Urine Ketones Urine Occult Blood Hyaline Casts Granular Casts Urine Mucus POC Troponin I 12/28/21 12/28/21 12/27/21 05:16 00:57 21:51 WBC 13.6 H RBC 2.71 L Hgb 8.1 L Hct 25.4 L POC Hct MCHC RDW MPV Immature Gran % (Auto) 1.6 H Neut % (Auto) 87.3 H Lymph % (Auto) 7.5 L Lymph # (Auto) 1.01 L Gentry # (Auto) Immature Gran # 0.22 H Absolute Neutrophils 12.04 H D-Dimer POC pCO2 POC HCO3 POC Total CO2 POC ABG Base Excess ABG Lactic Acid POC VBG pH POC VBG pCO2 at Temp POC VBG pO2 POC VBG HCO3 POC VBG Total CO2 POC Venous O2 Sat POC VBG Base Excess POC Sodium Sodium 121 L 123 L POC Chloride Chloride Carbon Dioxide BUN Creatinine Glucose POC Glucose POC WB Ioniz Calcium AST ALT Alkaline Phosphatase Total Protein Albumin Albumin/Globulin Ratio Procalcitonin Urine Appearance Urine Protein Urine Ketones Urine Occult Blood Hyaline Casts Granular Casts Urine Mucus POC Troponin I 12/27/21 12/27/21 12/27/21 12:52 12:50 12:48 WBC RBC Hgb Hct POC Hct 29.0 L MCHC RDW MPV Immature Gran % (Auto) Neut % (Auto) Lymph % (Auto) Lymph # (Auto) Gentry # (Auto) Immature Gran # Absolute Neutrophils D-Dimer POC pCO2 POC HCO3 POC Total CO2 POC ABG Base Excess ABG Lactic Acid POC VBG pH POC VBG pCO2 at Temp 36.6 L POC VBG pO2 POC VBG HCO3 21.9 L POC VBG Total CO2 23.0 L POC Venous O2 Sat POC VBG Base Excess -3.0 L POC Sodium 124 L Sodium POC Chloride 92 L Chloride Carbon Dioxide BUN Creatinine Glucose POC Glucose 199 H POC WB Ioniz Calcium 1.36 H AST ALT Alkaline Phosphatase Total Protein Albumin Albumin/Globulin Ratio Procalcitonin Urine Appearance Urine Protein Urine Ketones Urine Occult Blood Hyaline Casts Granular Casts Urine Mucus POC Troponin I 0.01 L 12/27/21 12/27/21 12/27/21 12:35 12:35 12:35 WBC 18.3 H RBC 3.10 L Hgb 9.4 L Hct 28.0 L POC Hct MCHC RDW MPV Immature Gran % (Auto) 2.0 H Neut % (Auto) 86.3 H Lymph % (Auto) 7.3 L Lymph # (Auto) 1.33 L Gentry # (Auto) Immature Gran # 0.36 H Absolute Neutrophils 16.21 H D-Dimer 2.34 H POC pCO2 POC HCO3 POC Total CO2 POC ABG Base Excess ABG Lactic Acid POC VBG pH POC VBG pCO2 at Temp POC VBG pO2 POC VBG HCO3 POC VBG Total CO2 POC Venous O2 Sat POC VBG Base Excess POC Sodium Sodium POC Chloride Chloride Carbon Dioxide BUN Creatinine Glucose POC Glucose POC WB Ioniz Calcium AST ALT Alkaline Phosphatase Total Protein Albumin Albumin/Globulin Ratio Procalcitonin 2.64 H Urine Appearance Urine Protein Urine Ketones Urine Occult Blood Hyaline Casts Granular Casts Urine Mucus POC Troponin I Meds: Medications Acetaminophen (Acetaminophen 325 Mg Tablet) 650 mg PO Q4-6HP PRN; Protocol PRN Reason: Per Pain Protocol/Fever > 101 Last Admin: 12/29/21 06:29 Dose: 650 mg Azathioprine (Azathioprine 50 Mg Tablet) 100 mg PO QDAY [facility] Last Admin: 12/29/21 11:38 Dose: 100 mg Benzonatate (Benzonatate 100 Mg Capsule) 100 mg PO TIDP PRN PRN Reason: Cough Last Admin: 12/29/21 13:49 Dose: 100 mg Dextrose (Dextrose 50% 50 Ml Vial) 0 ml IV UD PRN PRN Reason: Per Sliding Scale Diagnostic Test (Pha) (Accu-Chek 1 Each Strip) 1 each FS ACHS [facility] Last Admin: 12/29/21 20:59 Dose: 1 each Digoxin (Digoxin 125 Mcg Tablet) 125 mcg PO DAILY@1400 [facility] Last Admin: 12/29/21 13:49 Dose: 125 mcg Docusate Sodium (Docusate Sodium 100 Mg Capsule) 100 mg PO BID [facility] Last Admin: 12/29/21 20:59 Dose: Not Given Duloxetine HCl (Duloxetine 30 Mg Capsule) 30 mg PO BID [facility] Last Admin: 12/29/21 21:19 Dose: 30 mg Enoxaparin Sodium (Enoxaparin 40 Mg/0.4 Ml Syringe) 40 mg SQ DAILY [facility] Last Admin: 12/29/21 11:33 Dose: 40 mg Gabapentin (Gabapentin 300 Mg Capsule) 300 mg PO TIDP PRN PRN Reason: Pain Gemfibrozil (Gemfibrozil 600 Mg Tablet) 600 mg PO BID [facility] Last Admin: 12/29/21 21:19 Dose: 600 mg Glucose (Dextrose 31 Gm Oral.Susp) 15 gm PO PRN PRN PRN Reason: Hypoglycemia Guaifenesin (Guaifenesin/Dextromethorphan Oral Gege) 10 ml PO Q4HP PRN PRN Reason: Cough Last Admin: 12/28/21 19:06 Dose: 10 ml Sodium Chloride (Sodium Chloride 0.9%) 1,000 mls @ 100 mls/hr IV .Q10H [facility] Last Admin: 12/29/21 18:43 Dose: 100 mls/hr Sodium Chloride (Sodium Chloride 0.9%) 250 mls @ 20 mls/hr IV .[id number] [facility] Last Admin: 12/29/21 18:14 Dose: Not Given Diltiazem HCl 125 mg/ Dextrose 125 mls @ 5 mls/hr IV Q24H [facility]; Protocol Last Titration: 12/30/21 06:51 Dose: Infused Meropenem 1 gm/ Sodium (Chloride) 50 mls @ 100 mls/hr IV Q12H [facility]; Protocol Insulin Human Lispro (Insulin Lispro 1 Unit/0.01 Ml Unit) 0 unit SQ ACHS [facility]; Protocol Last Admin: 12/29/21 20:59 Dose: Not Given Levalbuterol HCl (Levalbuterol 1.25 Mg/3 Ml Ampul.Neb) 1.25 mg NEB Q4HRT [facility] Last Admin: 12/30/21 07:12 Dose: 1.25 mg Levothyroxine Sodium (Levothyroxine 50 Mcg Tablet) 50 mcg PO QAMAC [facility] Last Admin: 12/29/21 06:29 Dose: 50 mcg Lorazepam (Lorazepam 1 Mg Tablet) 1 mg PO BIDP PRN PRN Reason: Anxiety Last Admin: 12/28/21 21:03 Dose: 1 mg Lorazepam (Lorazepam 2 Mg/Ml Vial) 0.5 mg IV Q6HP PRN PRN Reason: ANXIETY/SEDATION Methocarbamol (Methocarbamol 500 Mg Tablet) 500 mg PO TID PRN PRN Reason: Spasms Last Admin: 12/28/21 16:48 Dose: 500 mg Methylprednisolone Sodium Succinate (Methylprednisolone Sod Succ 125 Mg/2 Ml Vial) 125 mg IV Q8 [facility] Last Admin: 12/30/21 06:02 Dose: 125 mg Metoprolol Tartrate (Metoprolol Tartrate 50 Mg Tablet) 75 mg PO BID [facility] Last Admin: 12/29/21 21:19 Dose: 75 mg Montelukast Sodium (Montelukast 10 Mg Tablet) 10 mg PO QPM [facility] Last Admin: 12/29/21 21:19 Dose: 10 mg Ondansetron HCl (Ondansetron 4 Mg/2 Ml Vial) 4 mg IV Q4-6HP PRN; Protocol PRN Reason: Nausea And Vomiting Pantoprazole Sodium (Pantoprazole 40 Mg Vial) 40 mg IV QAMAC [facility] Senna (Sennosides 1 Tablet) 1 tab PO DAILY [facility] Last Admin: 12/29/21 12:16 Dose: Not Given Sodium Chloride (0.9 % Sodium Chloride 10 Ml Syringe) 10 ml IV Q8 [facility] Last Admin: 12/30/21 06:02 Dose: 10 ml Topiramate (Topiramate 25 Mg Tablet) 25 mg PO BID PRN PRN Reason: Seizure Activity Vitamin B Complex (Vitamin B Complex 1 Capsule) 1 cap PO DAILY [facility] Last Admin: 12/29/21 11:39 Dose: 1 cap Vitamin D (Vitamin D3 25 Mcg Tablet) 50 mcg PO DAILY [facility] Last Admin: 12/29/21 17:53 Dose: Not Given A/P Assessment and plan (1) Depression with anxiety: Status: Acute (2) Asthma: Status: Chronic (3) COPD exacerbation: Status: Acute (4) Community acquired pneumonia: Status: Acute (5) Crohn disease: Status: Chronic (6) Hypertension, essential: Status: Chronic (7) Hyperlipidemia: Status: Chronic (8) Sepsis: Status: Chronic (9) Hypothyroidism: Status: Chronic (10) Diabetes mellitus with neuropathy: Status: Chronic Qualifiers: Diabetes mellitus type: type 2 Diabetes mellitus extermination inspector insulin use: without extermination inspector use Qualified Code(s): E11.40 - Type 2 diabetes mellitus with diabetic neuropathy, unspecified (11) Hypothyroidism (acquired): Status: Acute (12) Atrial fibrillation: Status: Acute (13) Hyponatremia: Status: Acute Narrative A/P Narrative: Assessment and Plans: 1. Community acquired pneumonia, sepsis criteria: Supplemental oxygen therapy as needed titrate to achieve spo2>=88% Serial lactic acid Procalcitonin level Blood culture, no growth to date cbc w/ auto diff in the morning to trend WBC MRSA PCR negative, d/c Vancomycin Continue Meropenem Status post IV fluid boluses given in the ED, to be followed by normal saline at 100 cc/h BiPAP, will attempt to d/c later today as tolerated 2. COPD exacerbation: BiPAP, will attempt to d/c later today as tolerated Meropenem Xopenex NEB scheduled Montelukast d/c Prednisone, switch to Solu-Medrol Repeat CXR 12/29 BiPAP, repeat ABG 3. Uncontrolled atrial fibrillation, likely triggered by infection: Treat underlying infection, see #[address] angio chest negative for PE Diltiazem drip stands by Metoprolol tartrate 75mg PO BID Digoxin [id number] score of 5. Discussed with patient the need to start anticoagulations, patient would like to do further discussions with her PCP later 4. Hyponatremia: Status post IV fluid boluses given in the ED, to be followed by normal saline at 100 cc/h Serum sodium level check every 8 hours. Goal of correction 8-10 points in the first 24 hours to avoid overcorrection with INFORMATICS PHYSICIAN consequences such as central pontine myelinolysis 5. Depression with anxiety: Continue duloxetine 6. Acquired hypothyroidism: Continue thyroid replacement therapy 7. History of Crohn's disease: Continue azathioprine 8. Type 2 diabetes mellitus: Hemoglobin A1c Hold oral hypoglycemics SSI AC HS Accu Chek AC HS Hypoglycemia protocol Diabetic diet 9. History of essential hypertensions: Continue metoprolol tartrate 75mg PO BID Diltiazem drip stands by 10. Dyslipidemia: Continue statin therapy GI ppx: Protonix DVT ppx: Lovenox Code: Full Prognosis: extremely guarded Disposition: inpatient ICU Critical Care Time: 1hr Time Spent With Patient Time: Total time spent is greater than 50% in coordination of care (as documented) at patient's floor/unit and/or counseling patient: Total time spent with greater than 50% in coordination of care (as documented) at patient's floor/unit and/or counseling patient:: 50 - 70 minutes Critical Care Time: Yes Total Critical Care Time: 60 QUALITY VTE Deep Vein Thrombosis/Pulmonary Embolism Present on Admission: No
[2021-12-30] MEDS: ENOXAPARIN 40 MG/0.4 ML SYRINGE SQ SCH (08:28)
[2021-12-30] MEDS: PANTOPRAZOLE 40 MG VIAL IV SCH (08:28)
[2021-12-30] MEDS: INSULIN LISPRO 1 UNIT/0.01 ML UNIT SQ SCH ×4 (08:28→22:48)
[2021-12-30] MEDS: VITAMIN D3 25 MCG TABLET PO SCH (08:28)
[2021-12-30] MEDS: METOPROLOL TARTRATE 50 MG TABLET PO SCH ×2 (08:29→22:48)
[2021-12-30] MEDS: DULoxetine 30 MG CAPSULE PO SCH ×2 (08:29→22:47)
[2021-12-30] MEDS: LEVOTHYROXINE 50 MCG TABLET PO SCH (08:29)
[2021-12-30] MEDS: azaTHIOprine 50 MG TABLET PO SCH (08:29)
[2021-12-30] MEDS: DOCUSATE SODIUM 100 MG CAPSULE PO SCH ×2 (08:29→22:47)
[2021-12-30] MEDS: GEMFIBROZIL 600 MG TABLET PO SCH ×2 (08:29→22:48)
[2021-12-30] MEDS: VITAMIN B COMPLEX 1 CAPSULE PO SCH (08:29)
[2021-12-30] MEDS: SENNOSIDES 1 TABLET PO SCH (08:30)
[2021-12-30] MEDS: 0.9 % SODIUM CHLORIDE 250 ML IV SCH ×2 (09:08→22:52)
[2021-12-30] MEDS: LORazepam 1 MG TABLET PO PRN (09:11)
[2021-12-30] MEDS: 0.9 % SODIUM CHLORIDE 1,000 ML IV SCH ×2 (13:06→16:16)
[2021-12-30] MEDS: DIGOXIN 125 MCG TABLET PO SCH ×2 (13:11→16:55)
[2021-12-30] MEDS ORDERED: LORazepam 0.5 MG TABLET PO PRN (14:48)
[2021-12-30] MEDS: DILTIAZEM 125 MG in DEXTROSE 5% IN WATER 100 ML IV SCH (17:17)
[2021-12-30] MEDS: METHOCARBAMOL 500 MG TABLET PO PRN (22:47)
[2021-12-30] MEDS: MONTELUKAST 10 MG TABLET PO SCH (22:48)
[2021-12-31] MEDS: 0.9 % SODIUM CHLORIDE 1,000 ML IV SCH ×2 (00:43→12:21)
[2021-12-31] MEDS: LEVALBUTEROL 1.25 MG/3 ML AMPUL.NEB NEB SCH (03:13)
[2021-12-31] MEDS: METOPROLOL TARTRATE 50 MG TABLET PO SCH ×3 (04:28→21:32)
[2021-12-31] MEDS: methylPREDNISolone SOD SUCC 125 MG/2 ML VIAL IV SCH ×3 (05:57→21:31)
[2021-12-31] MEDS: MEROPENEM 1 GM in 0.9 % SODIUM CHLORIDE 50 ML IV SCH ×3 (05:57→18:38)
[2021-12-31] MEDS: 0.9 % SODIUM CHLORIDE 10 ML SYRINGE IV SCH ×3 (06:05→21:32)
[2021-12-31] MEDS: BUDESONIDE 0.5 MG/2 ML AMPUL.NEB NEB SCH ×2 (07:00→19:21)
[2021-12-31] MEDS: IPRATROPIUM/ALBUTEROL 3 ML AMPUL.NEB NEB SCH ×3 (07:00→19:21)
[2021-12-31] MEDS: LEVOTHYROXINE 50 MCG TABLET PO SCH (07:10)
[2021-12-31] MEDS: PANTOPRAZOLE 40 MG VIAL IV SCH (07:11)
[2021-12-31] MEDS: VITAMIN D3 25 MCG TABLET PO SCH (07:56)
[2021-12-31] MEDS: VITAMIN B COMPLEX 1 CAPSULE PO SCH (07:56)
[2021-12-31] MEDS: GEMFIBROZIL 600 MG TABLET PO SCH ×3 (07:57→22:03)
[2021-12-31] MEDS: ENOXAPARIN 40 MG/0.4 ML SYRINGE SQ SCH (08:07)
[2021-12-31] MEDS: INSULIN LISPRO 1 UNIT/0.01 ML UNIT SQ SCH ×4 (08:07→21:31)
[2021-12-31 10:08] LABS: Basophils # (Auto) 0.03 K/mcL (0.00-0.30); Basophils % (Auto) 0.3 % (0.0-2.0); Eosinophils # (Auto) 0 K/mcL (0.00-0.70); Eosinophils % (Auto) 0 % (0.0-7.0); Hematocrit 42.1 % (34.1-44.9); Hemoglobin 13.7 g/dL (11.2-15.7); Lymphocytes # (Auto) 0.93 K/mcL (1.50-4.80); Lymphocytes % (Auto) 8.5 % (15.5-49.0); Mean Cell Volume 90.1 fL (80.0-100.0); Mean Corpuscular HGB Conc 32.5 g/dL (31.0-36.0); Mean Platelet Volume 10.6 fL (7.4-10.4); Monocytes # (Auto) 0.18 K/mcL (0.10-0.90); Monocytes % (Auto) 1.6 % (1.0-12.0); Platelet Count 88 K/mcL (140-440); RBC 4.67 M/mcL (3.59-5.38); Red Cell Distribution Width 14.6 % (11.5-14.5)
[2021-12-31] MEDS ORDERED: DILTIAZEM 125 MG in DEXTROSE 5% IN WATER 100 ML IV PRN (10:15)
[2021-12-31 10:35] LABS: ALT/SGPT 1581 U/L (<40); AST/SGOT 1679 U/L (<32); Albumin 2.9 gm/dL (3.2-5.2); Alkaline Phosphatase 346 U/L (39-117); Bilirubin,Total 0.8 mg/dL (0.1-1.0); Blood Urea Nitrogen 40 mg/dL (8-23); Calcium 8.9 mg/dL (8.6-10.4); Carbon Dioxide 16 mmol/L (22-30); Chloride 94 mmol/L (96-108); Globulin 2.9 gm/dL (2.2-3.7); Glomerular Filtration Rate 45; Glucose 200 mg/dL (70-105)
--- NOTE | 2021-12-31 11:40 | Internal Med Progress Note ---
SUBJECTIVE Subjective Patient information: Note initiated : 12/31/21 at 11:21 am Service Date, if different from initiated Date: [] Patient: Ashlie Sharpe 86 y/o F admitted on 12/27/21 for Covid symptoms. Chief Complaint: [Sepsis] Interval history: Ms. Sharpe is a 86 year old F history of Crohn's disease, depressions, anxiety, hypothyroidism, type 2 diabetes, essential hypertensions, mixed dyslipidemia, atrial fibrillation's, asthma, COPD, presenting with 3 weeks history of shortness of breath. She is vaccinated against COVID-pneumonia, influenza, and pneumococcus. Denies sick contact or recent travel. She is complain of 3 weeks history of shortness of breath accompanied with productive cough with green sputum productions, respiratory wheezings, subjective fever and chills. She is also complaining of generalized muscle aches and general weakness. She denies any chest pain or palpitations. She denies any GI symptoms such as nausea vomiting or change in her appetite. Vital signs significant for low-grade fever T-max 37.6, tachycardia with heart rate up to the 170s beats per minutes, and oxygen saturation in the mid 90s at rest and high 80s when ambulates. Labs significant for leukocytosis with WBC 18.3. Serum lactic acid 1.9. Influenza AMB, as well as COVID screening test negative. Serum sodium level 124. Chest x-ray showing bilateral infiltrates. 12/28: [place] negative. CT angio chest negative for PE. Serum sodium level 124. Afebrile overnight. On 1L/min oxygen. Cultures no growth to date. Diltiazem drip was being switched off at around 0530 this morning. Patient's degree of shortness of breath has improved. c/o productive cough with yellow/green sputum. c/o wheezing. Denies chest pain or palpitation. Denies fever chills or diaphoresis. Diltiazem drip stands by. Metoprolol tartrate, titrate dosage as tolerated. Patient would like to defer the decision of starting anticoagulants with her PCP. Continue supplemental oxygen, Vancomycin/Zosyn for pneumonia. Continue bronchodilators and Prednisone for COPD with exacerbation. 12/29: Afebrile overnight. Still on 2 L/min of oxygen. However, patient is have subjective and objective signs of increased work of breathing. VBG showing pH of 7.26, bicarb 15.8, PO2 23, PCO2 34.7, and lactic acid 2.0. She is also observed to have tachypnea with rate of breathing in the high 20s, and abdominal breathing pattern noted. Patient is complaining of shortness of breath as well as lethargy. She is able to follow verbal command though however. Also of note, her serum sodium levels continue to trend down now 120 despite normal saline given at a rate of 100 cc/h. Her heart rate is in the 100s beats per minutes with blood pressure mostly with systolic of 100 and diastolic of 60 mmHg. Repeat chest x-ray. Start the patient on BiPAP and see if the patient could tolerated. Repeat ABG 30 minutes after starting BiPAP. MRSA screening negative. Will DC vancomycin while keeping meropenem for her pneumonia. We will switched steroid from p.o. prednisone to IV Solu-Medrol. Will consider metoprolol and digoxin for atrial fibrillation's We will continue normal saline at 100 cc/h infusions while checking serum sodium level sequentially. Overall condition still very guarded. 12/30: Patient is currently on BiPAP. Afebrile overnight. All cultures no growth today. Urine output finally picks up now at around 50 cc/h. Serum creatinine level 1.4. Serum sodium level 119. LFTs continue to elevate. Patient feels like her degree of shortness of breath has improved. Not currently committing of any wheezing or cough. Not currently, never any chest pain or palpitations. Not currently complaining of any fever chills or diaphoresis. Patient is still extremely guarded. We will try to get rid of the BiPAP later today as tolerated. Continue meropenem for her pneumonia. Continue IV Solu-Medrol and Xopenex for COPD exacerbations. Continue metoprolol tartrate and digoxin for atrial fibrillation's. Patient would like to defer the decision to start anticoagulations with her PCP We will continue normal saline at 100 cc/h infusions while checking serum sodium level sequentially. 12/31: I have now taken over the care of this patient on hospital day #4. Her respiratory status and blood pressures are improving. We need to continue to work on her mentation. Discussed the case with the RN who was present at the bedside. Constitutional Vitals: Vital Signs Temp Pulse Resp BP Pulse Ox O2 Del Method O2 Flow Rate 97.8 F 97 H 22 130/77 94 0 08/02/22 08:02 12/31/21 11:01 12/31/21 11:01 12/31/21 11:01 12/31/21 11:01 12/31/21 08:00 12/31/21 10:01 Period Temp Pulse Resp BP Sys/Matt Pulse Ox O2 Del Method O2 Flow Rate Last 24 Hr 96.1 F-97.8 F 71-121 18-29 100-156/57-122 92-99 BiPAP-Room Air 0-0 Intake and Output 12/30/21 12/31/21 12/31/21 21:59 05:59 13:59 Intake Total 50 1000 290 Output Total 620 940 470 Balance -570 60 -180 Weight 75.705 kg Intake & Output: Intake & Output 12/30/21 12/31/21 12/31/21 21:59 05:59 13:59 Intake Total 50 1000 290 Output Total 620 940 470 Balance -570 60 -180 Weight 75.705 kg Intake: Nourishment/Supplement quantity 240 (ml) IV 50 1000 50 Sodium Chloride 0.9% 1,000 ml @ 1000 100 mls/hr IV .Q10H [facility] Rx#: [id number] Merrem 1 gm In Sodium Chloride 50 50 0.9% 50 ml @ 100 mls/hr IV Q12H [facility] Rx#:[id number] Output: Urine Catheter Amount 620 940 470 Other: Meal Breakfast Percent of Meal Consumed Refused Nourishment/Supplement name gluckacina Urine Appearance Clear Clear Clear Uretheral (Meza) Clear Urine Color Pale Pale Pale Uretheral (Meza) Yellow Pale Urine Odor Normal General appearance: morbidly obese Head Head exam: Present atraumatic and normal inspection Eye Eye exam: Present normal appearance ENT ENT exam: Present mucous membranes moist, normal exam and normal external ear exam Neck Neck exam: Present normal inspection Respiratory Respiratory exam: Present normal respiratory exam Cardiovascular Cardiovascular exam: Present tachycardia GI/Abdominal GI/Abdominal exam: Present normal bowel sounds Back Exam Back exam: Present normal inspection Neurological Exam Neurological exam: Present altered Skin Skin exam: Present intact and warm OBJ DATA Labs CBC & Chem 7: 12/31/21 05:24 12/31/21 05:24 Labs: Abnormal Lab Results 12/31/21 12/31/21 12/30/21 05:24 05:24 14:22 WBC RBC Hgb Hct MCHC RDW 14.6 H Plt Count 88 L MPV 10.6 H Immature Gran % (Auto) 4.6 H Neut % (Auto) 85.0 H Lymph % (Auto) 8.5 L Lymph # (Auto) 0.93 L T[place] # (Auto) Immature Gran # 0.50 H Absolute Neutrophils 9.81 H POC pCO2 POC HCO3 POC Total CO2 POC ABG Base Excess ABG Lactic Acid POC VBG pH POC VBG pCO2 at Temp POC VBG pO2 POC VBG HCO3 POC VBG Total CO2 POC Venous O2 Sat POC VBG Base Excess Sodium 127 L 121 L Chloride 94 L Carbon Dioxide 16 L Anion Gap 17.0 H BUN 40 H Creatinine Glucose 200 H AST 1679 H ALT 1581 H Alkaline Phosphatase 346 H Total Protein 5.8 L Albumin 2.9 L Albumin/Globulin Ratio Urine Appearance Urine Protein Urine Ketones Urine Occult Blood Hyaline Casts Granular Casts Urine Mucus 12/30/21 12/30/21 12/29/21 05:24 05:24 22:18 WBC 26.2 H RBC 3.26 L Hgb 9.9 L Hct 32.2 L MCHC 30.7 L RDW 14.7 H Plt Count MPV 10.7 H Immature Gran % (Auto) 2.0 H Neut % (Auto) 93.0 H Lymph % (Auto) 3.4 L Lymph # (Auto) 0.90 L T[place] # (Auto) Immature Gran # 0.52 H Absolute Neutrophils 24.89 H POC pCO2 POC HCO3 POC Total CO2 POC ABG Base Excess ABG Lactic Acid POC VBG pH POC VBG pCO2 at Temp POC VBG pO2 POC VBG HCO3 POC VBG Total CO2 POC Venous O2 Sat POC VBG Base Excess Sodium 119 L* 120 L Chloride 91 L Carbon Dioxide 13 L Anion Gap BUN 25 H Creatinine 1.4 H Glucose 174 H AST ALT 2400 H Alkaline Phosphatase 297 H Total Protein 5.8 L Albumin 2.6 L Albumin/Globulin Ratio 0.8 L Urine Appearance Urine Protein Urine Ketones Urine Occult Blood Hyaline Casts Granular Casts Urine Mucus 12/29/21 12/29/21 12/29/21 14:00 11:24 10:06 WBC RBC Hgb Hct MCHC RDW Plt Count MPV Immature Gran % (Auto) Neut % (Auto) Lymph % (Auto) Lymph # (Auto) T[place] # (Auto) Immature Gran # Absolute Neutrophils POC pCO2 29.2 L POC HCO3 16.0 L POC Total CO2 17.0 L POC ABG Base Excess -10.0 L ABG Lactic Acid 2.2 H POC VBG pH POC VBG pCO2 at Temp POC VBG pO2 POC VBG HCO3 POC VBG Total CO2 POC Venous O2 Sat POC VBG Base Excess Sodium 119 L* Chloride Carbon Dioxide Anion Gap BUN Creatinine Glucose AST ALT Alkaline Phosphatase Total Protein Albumin Albumin/Globulin Ratio Urine Appearance Cloudy A Urine Protein 100 mg/dl A Urine Ketones Trace A Urine Occult Blood Small A Hyaline Casts 5 H Granular Casts 94 H Urine Mucus Few A 12/29/21 12/29/21 12/29/21 08:47 05:49 05:49 WBC 28.0 H RBC 3.08 L Hgb 9.3 L Hct 28.6 L MCHC RDW Plt Count MPV Immature Gran % (Auto) 5.0 H Neut % (Auto) 82.6 H Lymph % (Auto) 7.2 L Lymph # (Auto) Taney # (Auto) 1.41 H Immature Gran # 1.41 H Absolute Neutrophils 24.47 H POC pCO2 POC HCO3 POC Total CO2 POC ABG Base Excess ABG Lactic Acid POC VBG pH 7.26 L POC VBG pCO2 at Temp 34.7 L POC VBG pO2 23 L POC VBG HCO3 15.8 L POC VBG Total CO2 17.0 L POC Venous O2 Sat 34.0 L POC VBG Base Excess -11.0 L Sodium 120 L Chloride 90 L Carbon Dioxide 17 L Anion Gap BUN Creatinine Glucose 127 H AST 3132 H ALT 995 H Alkaline Phosphatase 161 H Total Protein Albumin 2.8 L Albumin/Globulin Ratio 0.9 L Urine Appearance Urine Protein Urine Ketones Urine Occult Blood Hyaline Casts Granular Casts Urine Mucus 12/28/21 12/28/21 13:53 00:57 WBC RBC Hgb Hct MCHC RDW Plt Count MPV Immature Gran % (Auto) Neut % (Auto) Lymph % (Auto) Lymph # (Auto) [place] # (Auto) Immature Gran # Absolute Neutrophils POC pCO2 POC HCO3 POC Total CO2 POC ABG Base Excess ABG Lactic Acid POC VBG pH POC VBG pCO2 at Temp POC VBG pO2 POC VBG HCO3 POC VBG Total CO2 POC Venous O2 Sat POC VBG Base Excess Sodium 123 L 121 L Chloride Carbon Dioxide Anion Gap BUN Creatinine Glucose AST ALT Alkaline Phosphatase Total Protein Albumin Albumin/Globulin Ratio Urine Appearance Urine Protein Urine Ketones Urine Occult Blood Hyaline Casts Granular Casts Urine Mucus Meds: Medications Acetaminophen (Acetaminophen 325 Mg Tablet) 650 mg PO Q4-6HP PRN; Protocol PRN Reason: Per Pain Protocol/Fever > 101 Last Admin: 12/29/21 06:29 Dose: 650 mg Albuterol/Ipratropium (Ipratropium/Albuterol 3 Ml Ampul.Neb) 3 ml NEB Q6HRT [facility] Last Admin: 12/31/21 07:00 Dose: 3 ml Azathioprine (Azathioprine 50 Mg Tablet) 100 mg PO QDAY [facility] Last Admin: 12/30/21 08:29 Dose: 100 mg Benzonatate (Benzonatate 100 Mg Capsule) 100 mg PO TIDP PRN PRN Reason: Cough Last Admin: 12/29/21 13:49 Dose: 100 mg Budesonide (Budesonide 0.5 Mg/2 Ml Ampul.Neb) 0.5 mg NEB Q12 [facility] Last Admin: 12/31/21 07:00 Dose: 0.5 mg Dextrose (Dextrose 50% 50 Ml Vial) 0 ml IV UD PRN PRN Reason: Per Sliding Scale Diagnostic Test (Pha) (Accu-Chek 1 Each Strip) 1 each FS ACHS [facility] Last Admin: 12/31/21 07:37 Dose: 1 each Digoxin (Digoxin 125 Mcg Tablet) 125 mcg PO DAILY@1400 [facility] Last Admin: 12/30/21 16:55 Dose: 125 mcg Docusate Sodium (Docusate Sodium 100 Mg Capsule) 100 mg PO BID [facility] Last Admin: 12/30/21 22:47 Dose: Not Given Enoxaparin Sodium (Enoxaparin 40 Mg/0.4 Ml Syringe) 40 mg SQ DAILY [facility] Last Admin: 12/31/21 08:07 Dose: 40 mg Gabapentin (Gabapentin 300 Mg Capsule) 300 mg PO TIDP PRN PRN Reason: Pain Gemfibrozil (Gemfibrozil 600 Mg Tablet) 600 mg PO BID [facility] Last Admin: 12/31/21 07:57 Dose: Not Given Glucose (Dextrose 31 Gm Oral.Susp) 15 gm PO PRN PRN PRN Reason: Hypoglycemia Guaifenesin (Guaifenesin/Dextromethorphan Oral Gege) 10 ml PO Q4HP PRN PRN Reason: Cough Last Admin: 12/28/21 19:06 Dose: 10 ml Sodium Chloride (Sodium Chloride 0.9%) 1,000 mls @ 100 mls/hr IV .Q10H [facility] Last Admin: 12/31/21 00:43 Dose: 100 mls/hr Sodium Chloride (Sodium Chloride 0.9%) 250 mls @ 20 mls/hr IV .[id number] [facility] Last Admin: 12/30/21 22:52 Dose: Not Given Meropenem 1 gm/ Sodium (Chloride) 50 mls @ 100 mls/hr IV Q12H [facility]; Protocol Last Infusion: 12/31/21 06:40 Dose: Infused Diltiazem HCl 125 mg/ Dextrose 125 mls @ 5 mls/hr IV Q24HP PRN; Protocol PRN Reason: Tachyarrhythmias Insulin Human Lispro (Insulin Lispro 1 Unit/0.01 Ml Unit) 0 unit SQ ACHS [facility]; Protocol Last Admin: 12/31/21 08:07 Dose: 3 units Levothyroxine Sodium ([facility]ine 50 Mcg Tablet) [facility] Admin: 12/31/21 07:10 Dose: 50 mcg Methylprednisolone Sodium Succinate (Methylprednisolone Sod Succ 125 Mg/2 Ml Vial) 125 mg IV Q8 [facility] Last Admin: 12/31/21 05:57 Dose: 125 mg Metoprolol Tartrate (Metoprolol Tartrate 50 Mg Tablet) 75 mg PO BID [facility] Last Admin: 12/31/21 07:10 Dose: 75 mg Montelukast Sodium (Montelukast 10 Mg Tablet) 10 mg PO QPM [facility] Last Admin: 12/30/21 22:48 Dose: Not Given Ondansetron HCl (Ondansetron 4 Mg/2 Ml Vial) 4 mg IV Q4-6HP PRN; Protocol PRN Reason: Nausea And Vomiting Pantoprazole Sodium (Pantoprazole 40 Mg Vial) [facility] Last Admin: 12/31/21 07:11 Dose: 40 mg Senna (Sennosides 1 Tablet) 1 tab PO DAILY [facility] Last Admin: 12/30/21 08:30 Dose: Not Given Sodium Chloride (0.9 % Sodium Chloride 10 Ml Syringe) 10 ml IV Q8 [facility] Last Admin: 12/31/21 06:05 Dose: 10 ml Topiramate (Topiramate 25 Mg Tablet) 25 mg PO BID PRN PRN Reason: Seizure Activity Vitamin B Complex (Vitamin B Complex 1 Capsule) 1 cap PO DAILY [facility] Last Admin: 12/31/21 07:56 Dose: Not Given Vitamin D (Vitamin D3 25 Mcg Tablet) 50 mcg PO DAILY [facility] Last Admin: 12/31/21 07:56 Dose: Not Given A/P Assessment and plan (1) Depression with anxiety: Status: Acute (2) Asthma: Status: Chronic (3) COPD exacerbation: Status: Acute (4) Community acquired pneumonia: Status: Acute (5) Crohn disease: Status: Chronic (6) Hypertension, essential: Status: Chronic (7) Hyperlipidemia: Status: Chronic (8) Sepsis: Status: Chronic (9) Hypothyroidism: Status: Chronic (10) Diabetes mellitus with neuropathy: Status: Chronic Qualifiers: Diabetes mellitus type: 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 2 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 Community acquired pneumonia, sepsis criteria: Supplemental oxygen therapy as needed titrate to achieve spo2>=88% Serial lactic acid Procalcitonin level Blood culture, no growth to date cbc w/ auto diff in the morning to trend WBC The patient will complete a 5-day course of meropenem. IV fluids may not be discontinued. 2. COPD exacerbation: BiPAP has been discontinued. Continue IV Solu-Medrol, started on duo nebs and Pulmicort nebulizers 3. Uncontrolled atrial fibrillation, likely triggered by infection: Treat underlying infection, see #[address] angio chest negative for PE Diltiazem drip stands by Metoprolol tartrate 75mg PO BID Digoxin [id number] score of 5. Discussed with patient the need to start anticoagulations, patient would like to do further discussions with her PCP later 4. Hyponatremia: Status post IV fluid boluses given in the ED, to be followed by normal saline at 100 cc/h Serum sodium level check every 8 hours. Goal of correction 8-10 points in the first 24 hours to avoid overcorrection with TECHNOLOGY PROFESSIONAL consequences such as central pontine myelinolyses Hyponatremia is now improved to 127 5. Depression with anxiety: Discontinue duloxetine in the setting of altered sensorium 6. Acquired hypothyroidism: Continue thyroid replacement therapy 7. History of Crohn's disease: Continue azathioprine 8. Type 2 diabetes mellitus: Hemoglobin A1c Hold oral hypoglycemics SSI AC HS Accu Chek AC HS Hypoglycemia protocol Diabetic diet 9. History of essential hypertensions: Continue metoprolol tartrate 75mg PO BID Diltiazem drip stands by 10. Dyslipidemia: Continue statin therapy GI ppx: Protonix DVT ppx: Lovenox Code: Full Prognosis: extremely guarded Disposition: inpatient ICU Critical Care Time: 1hr Time Spent With Patient Time: Total time spent is greater than 50% in coordination of care (as documented) at patient's floor/unit and/or counseling patient: Total time spent with greater than 50% in coordination of care (as documented) at patient's floor/unit and/or counseling patient:: 50 - 70 minutes Critical Care Time: Yes Total Critical Care Time: 30 QUALITY VTE Deep Vein Thrombosis/Pulmonary Embolism Present on Admission: No
[2021-12-31] MEDS: DOCUSATE SODIUM 100 MG CAPSULE PO SCH ×3 (12:04→22:04)
[2021-12-31] MEDS: 0.9 % SODIUM CHLORIDE 250 ML IV SCH ×2 (12:27→23:38)
[2021-12-31] MEDS: DULoxetine 30 MG CAPSULE PO SCH (12:28)
[2021-12-31] MEDS: azaTHIOprine 50 MG TABLET PO SCH (14:19)
[2021-12-31] MEDS: DIGOXIN 125 MCG TABLET PO SCH (14:19)
[2021-12-31] MEDS: SENNOSIDES 1 TABLET PO SCH (17:06)
[2021-12-31] MEDS: MONTELUKAST 10 MG TABLET PO SCH (21:31)
[2022-01-01] MEDS: IPRATROPIUM/ALBUTEROL 3 ML AMPUL.NEB NEB SCH ×2 (01:26→07:54)
[2022-01-01] MEDS: methylPREDNISolone SOD SUCC 125 MG/2 ML VIAL IV SCH (05:44)
[2022-01-01] MEDS: 0.9 % SODIUM CHLORIDE 10 ML SYRINGE IV SCH ×4 (05:45→22:00)
[2022-01-01 06:48] LABS: Basophils # (Auto) 0.04 K/mcL (0.00-0.30); Basophils % (Auto) 0.2 % (0.0-2.0); Eosinophils # (Auto) 0 K/mcL (0.00-0.70); Eosinophils % (Auto) 0 % (0.0-7.0); Hematocrit 30.2 % (34.1-44.9); Hemoglobin 9.6 g/dL (11.2-15.7); Lymphocytes # (Auto) 1.91 K/mcL (1.50-4.80); Lymphocytes % (Auto) 11.6 % (15.5-49.0); Mean Cell Volume 93.5 fL (80.0-100.0); Mean Corpuscular HGB Conc 31.8 g/dL (31.0-36.0); Mean Platelet Volume 11.4 fL (7.4-10.4); Monocytes # (Auto) 0.41 K/mcL (0.10-0.90); Monocytes % (Auto) 2.5 % (1.0-12.0); Neutrophils % (Auto) 80.7 % (38.0-78.0); Platelet Count 140 K/mcL (140-440); RBC 3.23 M/mcL (3.59-5.38); Red Cell Distribution Width 14.8 % (11.5-14.5); WBC 16.5 K/mcL (4.5-11.0)
[2022-01-01] MEDS: MEROPENEM 1 GM in 0.9 % SODIUM CHLORIDE 50 ML IV SCH (07:26)
[2022-01-01] MEDS: BUDESONIDE 0.5 MG/2 ML AMPUL.NEB NEB SCH (07:54)
[2022-01-01] MEDS: LEVOTHYROXINE 50 MCG TABLET PO SCH (08:15)
[2022-01-01] MEDS: VITAMIN B COMPLEX 1 CAPSULE PO SCH (08:16)
[2022-01-01] MEDS: DOCUSATE SODIUM 100 MG CAPSULE PO SCH ×2 (08:16→23:39)
[2022-01-01] MEDS: METOPROLOL TARTRATE 50 MG TABLET PO SCH (08:16)
[2022-01-01] MEDS: SENNOSIDES 1 TABLET PO SCH (08:16)
[2022-01-01] MEDS: GEMFIBROZIL 600 MG TABLET PO SCH (08:16)
[2022-01-01] MEDS: azaTHIOprine 50 MG TABLET PO SCH (08:16)
[2022-01-01] MEDS: VITAMIN D3 25 MCG TABLET PO SCH (08:16)
[2022-01-01] MEDS: PANTOPRAZOLE 40 MG VIAL IV SCH (08:42)
[2022-01-01] MEDS: INSULIN LISPRO 1 UNIT/0.01 ML UNIT SQ SCH ×2 (08:42→13:34)
[2022-01-01] MEDS: ENOXAPARIN 40 MG/0.4 ML SYRINGE SQ SCH (08:42)
[2022-01-01] MEDS: 0.9 % SODIUM CHLORIDE 250 ML IV SCH (08:43)
[2022-01-01 08:52] LABS: Basophils # (Auto) 0.03 K/mcL (0.00-0.30); Basophils % (Auto) 0.2 % (0.0-2.0); Eosinophils # (Auto) 0 K/mcL (0.00-0.70); Eosinophils % (Auto) 0 % (0.0-7.0); Hematocrit 31.6 % (34.1-44.9); Hemoglobin 9.9 g/dL (11.2-15.7); Lymphocytes # (Auto) 1.89 K/mcL (1.50-4.80); Mean Cell Volume 94.9 fL (80.0-100.0); Mean Corpuscular HGB Conc 31.3 g/dL (31.0-36.0); Mean Platelet Volume 10.5 fL (7.4-10.4); Monocytes # (Auto) 0.58 K/mcL (0.10-0.90); Monocytes % (Auto) 3.4 % (1.0-12.0); Platelet Count 133 K/mcL (140-440); RBC 3.33 M/mcL (3.59-5.38); Red Cell Distribution Width 14.7 % (11.5-14.5); WBC 17.2 K/mcL (4.5-11.0)
[2022-01-01 09:16] LABS: ALT/SGPT 940 U/L (<40); AST/SGOT 241 U/L (<32); Albumin 2.9 gm/dL (3.2-5.2); Alkaline Phosphatase 314 U/L (39-117); Bilirubin,Total 0.7 mg/dL (0.1-1.0); Blood Urea Nitrogen 34 mg/dL (8-23); Calcium 9.7 mg/dL (8.6-10.4); Carbon Dioxide 17 mmol/L (22-30); Chloride 97 mmol/L (96-108); Globulin 2.9 gm/dL (2.2-3.7); Glomerular Filtration Rate 66; Glucose 224 mg/dL (70-105)
--- NOTE | 2022-01-01 09:23 | Internal Med Progress Note ---
SUBJECTIVE Subjective Patient information: Note initiated : 01/01/22 at 9:20 am Service Date, if different from initiated Date: [] Patient: Ashlie Sharpe 86 y/o F admitted on 12/27/21 for Covid symptoms. Chief Complaint: [] Interval history: Ms. Sharpe is a 86 year old F history of Crohn's disease, depressions, anxiety, hypothyroidism, type 2 diabetes, essential hypertensions, mixed dyslipidemia, atrial fibrillation's, asthma, COPD, presenting with 3 weeks history of shortness of breath. She is vaccinated against COVID-pneumonia, influenza, and pneumococcus. Denies sick contact or recent travel. She is complain of 3 weeks history of shortness of breath accompanied with productive cough with green sputum productions, respiratory wheezings, subjective fever and chills. She is also complaining of generalized muscle aches and general weakness. She denies any chest pain or palpitations. She denies any GI symptoms such as nausea vomiting or change in her appetite. Vital signs significant for low-grade fever T-max 37.6, tachycardia with heart rate up to the 170s beats per minutes, and oxygen saturation in the mid 90s at rest and high 80s when ambulates. Labs significant for leukocytosis with WBC 18.3. Serum lactic acid 1.9. Influenza AMB, as well as COVID screening test negative. Serum sodium level 124. Chest x-ray showing bilateral infiltrates. 12/28: Suches negative. CT angio chest negative for PE. Serum sodium level 124. Afebrile overnight. On 1L/min oxygen. Cultures no growth to date. Diltiazem drip was being switched off at around 0530 this morning. Patient's degree of shortness of breath has improved. c/o productive cough with yellow/green sputum. c/o wheezing. Denies chest pain or palpitation. Denies fever chills or diaphoresis. Diltiazem drip stands by. Metoprolol tartrate, titrate dosage as tolerated. Patient would like to defer the decision of starting anticoagulants with her PCP. Continue supplemental oxygen, Vancomycin/Zosyn for pneumonia. Continue bronchodilators and Prednisone for COPD with exacerbation. 12/29: Afebrile overnight. Still on 2 L/min of oxygen. However, patient is have sub jective and objective signs of increased work of breathing. VBG showing pH of 7.26, bicarb 15.8, PO2 23, PCO2 34.7, and lactic acid 2.0. She is also observed to have tachypnea with rate of breathing in the high 20s, and abdominal breathing pattern noted. Patient is complaining of shortness of breath as well as lethargy. She is able to follow verbal command though however. Also of note, her serum sodium levels continue to trend down now 120 despite normal saline given at a rate of 100 cc/h. Her heart rate is in the 100s beats per minutes with blood pressure mostly with systolic of 100 and diastolic of 60 mmHg. Repeat chest x-ray. Start the patient on BiPAP and see if the patient could tolerated. Repeat ABG 30 minutes after starting BiPAP. MRSA screening negative. Will DC vancomycin while keeping meropenem for her pneumonia. We will switched steroid from p.o. prednisone to IV Solu-Medrol. Will consider metoprolol and digoxin for atrial fibrillation's We will continue normal saline at 100 cc/h infusions while checking serum sodium level sequentially. Overall condition still very guarded. 12/30: Patient is currently on BiPAP. Afebrile overnight. All cultures no growth today. Urine output finally picks up now at around 50 cc/h. Serum creatinine level 1.4. Serum sodium level 119. LFTs continue to elevate. Patient feels like her degree of shortness of breath has improved. Not currently committing of any wheezing or cough. Not currently, never any chest pain or palpitations. Not currently complaining of any fever chills or diaphoresis. Patient is still extremely guarded. We will try to get rid of the BiPAP later today as tolerated. Continue meropenem for her pneumonia. Continue IV Solu-Medrol and Xopenex for COPD exacerbations. Continue metoprolol tartrate and digoxin for atrial fibrillation's. Patient would like to defer the decision to start anticoagulations with her PCP We will continue normal saline at 100 cc/h infusions while checking serum sodium level sequentially. 12/31: I have now taken over the care of this patient on hospital day #4. Her respiratory status and blood pressures are improving. We need to continue to work on her mentation. Discussed the case with the RN who was present at the bedside. 12/31: The patient is still altered. Discussed the case with the RN and the daughter who was present at the bedside. Constitutional Vitals: Vital Signs Temp Pulse Resp BP Pulse Ox O2 Del Method O2 Flow Rate 96.5 F L 110 H 20 161/110 96 0 01/01/22 08:00 01/01/22 08:03 01/01/22 08:03 01/01/22 08:00 01/01/22 07:01 01/01/22 08:03 01/01/22 05:00 Period Temp Pulse Resp BP Sys/Matt Pulse Ox O2 Del Method O2 Flow Rate Last 24 Hr 96.5 F-98.3 F 25-114 17-25 107-161/71-111 92-98 Room Air-Room Air 0-0 Intake and Output 12/31/21 01/01/22 01/01/22 21:59 05:59 13:59 Intake Total 300 75 50 Output Total 781 430 130 Balance -481 -355 -80 Weight 76.385 kg Intake & Output: Intake & Output 12/31/21 01/01/22 01/01/22 21:59 05:59 13:59 Intake Total 300 75 50 Output Total 781 430 130 Balance -481 -355 -80 Weight 76.385 kg Intake: Nourishment/Supplement quantity 100 (ml) IV 100 50 Merrem 1 gm In Sodium Chloride 100 50 0.9% 50 ml @ 100 mls/hr IV Q12H [facility] Rx#:[id number] Oral 100 75 Output: Urine Catheter Amount 781 430 130 Other: Meal applesauce w/meds Feeding Ability Total Assistance Nourishment/Supplement name ensure Urine Appearance Clear Clear Uretheral (Meza) Clear Clear Urine Color Bright Yellow Bright Yellow Uretheral (Meza) Bright Yellow Bright Yellow Urine Odor Normal Normal Stool Size Moderate Stool Color Brown Stool Consistency Soft # Bowel Movements 1 # of times incontinent of 1 Bowels Head Head exam: Present atraumatic and normal inspection Eye Eye exam: Present normal appearance ENT ENT exam: Present mucous membranes moist, normal exam and normal external ear exam Neck Neck exam: Present normal inspection Respiratory Respiratory exam: Present normal respiratory exam Cardiovascular Cardiovascular exam: Present normal rate and rhythm GI/Abdominal GI/Abdominal exam: Present normal bowel sounds Back Exam Back exam: Present normal inspection Neurological Exam Neurological exam: Present altered Skin Skin exam: Present intact and warm OBJ DATA Labs CBC & Chem 7: 01/01/22 08:01 01/01/22 08:01 Labs: Abnormal Lab Results 01/01/22 01/01/22 01/01/22 08:01 08:01 07:47 WBC 17.2 H RBC 3.33 L Hgb 9.9 L Hct 31.6 L MCHC RDW 14.7 H Plt Count 133 L MPV 10.5 H Immature Gran % (Auto) 4.4 H Neut % (Auto) 81.0 H Lymph % (Auto) 11.0 L Lymph # (Auto) Immature Gran # 0.75 H Absolute Neutrophils 14.70 H POC pCO2 29.6 L POC pO2 76 L POC HCO3 18.0 L POC Total CO2 19.0 L POC ABG Base Excess -7.0 L ABG Lactic Acid Sodium 129 L Chloride Carbon Dioxide 17 L Anion Gap BUN 34 H Creatinine Glucose 224 H AST 241 H ALT 940 H Alkaline Phosphatase 314 H Total Protein 5.8 L Albumin 2.9 L Albumin/Globulin Ratio Urine Appearance Urine Protein Urine Ketones Urine Occult Blood Hyaline Casts Granular Casts Urine Mucus 01/01/22 12/31/21 12/31/21 05:08 05:24 05:24 WBC 16.5 H RBC 3.23 L Hgb 9.6 L Hct 30.2 L MCHC RDW 14.8 H 14.6 H Plt Count 88 L MPV 11.4 H 10.6 H Immature Gran % (Auto) 5.0 H 4.6 H Neut % (Auto) 80.7 H 85.0 H Lymph % (Auto) 11.6 L 8.5 L Lymph # (Auto) 0.93 L Immature Gran # 0.83 H 0.50 H Absolute Neutrophils 14.16 H 9.81 H POC pCO2 POC pO2 POC HCO3 POC Total CO2 POC ABG Base Excess ABG Lactic Acid Sodium 127 L Chloride 94 L Carbon Dioxide 16 L Anion Gap 17.0 H BUN 40 H Creatinine Glucose 200 H AST 1679 H ALT 1581 H Alkaline Phosphatase 346 H Total Protein 5.8 L Albumin 2.9 L Albumin/Globulin Ratio Urine Appearance Urine Protein Urine Ketones Urine Occult Blood Hyaline Casts Granular Casts Urine Mucus 12/30/21 12/30/21 12/30/21 14:22 05:24 05:24 WBC 26.2 H RBC 3.26 L Hgb 9.9 L Hct 32.2 L MCHC 30.7 L RDW 14.7 H Plt Count MPV 10.7 H Immature Gran % (Auto) 2.0 H Neut % (Auto) 93.0 H Lymph % (Auto) 3.4 L Lymph # (Auto) 0.90 L Immature Gran # 0.52 H Absolute Neutrophils 24.89 H POC pCO2 POC pO2 POC HCO3 POC Total CO2 POC ABG Base Excess ABG Lactic Acid Sodium 121 L 119 L* Chloride 91 L Carbon Dioxide 13 L Anion Gap BUN 25 H Creatinine 1.4 H Glucose 174 H AST ALT 2400 H Alkaline Phosphatase 297 H Total Protein 5.8 L Albumin 2.6 L Albumin/Globulin Ratio 0.8 L Urine Appearance Urine Protein Urine Ketones Urine Occult Blood Hyaline Casts Granular Casts Urine Mucus 12/29/21 12/29/21 12/29/21 22:18 14:00 11:24 WBC RBC Hgb Hct MCHC RDW Plt Count MPV Immature Gran % (Auto) Neut % (Auto) Lymph % (Auto) Lymph # (Auto) Immature Gran # Absolute Neutrophils POC pCO2 POC pO2 POC HCO3 POC Total CO2 POC ABG Base Excess ABG Lactic Acid Sodium 120 L 119 L* Chloride Carbon Dioxide Anion Gap BUN Creatinine Glucose AST ALT Alkaline Phosphatase Total Protein Albumin Albumin/Globulin Ratio Urine Appearance Cloudy A Urine Protein 100 mg/dl A Urine Ketones Trace A Urine Occult Blood Small A Hyaline Casts 5 H Granular Casts 94 H Urine Mucus Few A 12/29/21 10:06 WBC RBC Hgb Hct MCHC RDW Plt Count MPV Immature Gran % (Auto) Neut % (Auto) Lymph % (Auto) Lymph # (Auto) Immature Gran # Absolute Neutrophils POC pCO2 29.2 L POC pO2 POC HCO3 16.0 L POC Total CO2 17.0 L POC ABG Base Excess -10.0 L ABG Lactic Acid 2.2 H Sodium Chloride Carbon Dioxide Anion Gap BUN Creatinine Glucose AST ALT Alkaline Phosphatase Total Protein Albumin Albumin/Globulin Ratio Urine Appearance Urine Protein Urine Ketones Urine Occult Blood Hyaline Casts Granular Casts Urine Mucus Meds: Medications Acetaminophen (Acetaminophen 325 Mg Tablet) 650 mg PO Q4-6HP PRN; Protocol PRN Reason: Per Pain Protocol/Fever > 101 Last Admin: 12/29/21 06:29 Dose: 650 mg Albuterol/Ipratropium (Ipratropium/Albuterol 3 Ml Ampul.Neb) 3 ml NEB Q6HRT SUZANNA Last Admin: 01/01/22 07:54 Dose: 3 ml Azathioprine (Azathioprine 50 Mg Tablet) 100 mg PO QDAY [facility] Last Admin: 01/01/22 08:16 Dose: Not Given Benzonatate (Benzonatate 100 Mg Capsule) 100 mg PO TIDP PRN PRN Reason: Cough Last Admin: 12/29/21 13:49 Dose: 100 mg Budesonide (Budesonide 0.5 Mg/2 Ml Ampul.Neb) 0.5 mg NEB Q12 [facility] Last Admin: 01/01/22 07:54 Dose: 0.5 mg Dextrose (Dextrose 50% 50 Ml Vial) 0 ml IV UD PRN PRN Reason: Per Sliding Scale Diagnostic Test (Pha) (Accu-Chek 1 Each Strip) 1 each FS [facility] Last Admin: 01/01/22 07:37 Dose: 1 each Digoxin (Digoxin 125 Mcg Tablet) 125 mcg PO DAILY@1400 [facility] Last Admin: 12/31/21 14:19 Dose: 125 mcg Docusate Sodium (Docusate Sodium 100 Mg Capsule) 100 mg PO BID [facility] Last Admin: 01/01/22 08:16 Dose: Not Given Enoxaparin Sodium (Enoxaparin 40 Mg/0.4 Ml Syringe) 40 mg SQ DAILY [facility] Last Admin: 01/01/22 08:42 Dose: 40 mg Gabapentin (Gabapentin 300 Mg Capsule) 300 mg PO TIDP PRN PRN Reason: Pain Gemfibrozil (Gemfibrozil 600 Mg Tablet) 600 mg PO BID [facility] Last Admin: 01/01/22 08:16 Dose: Not Given Glucose (Dextrose 31 Gm Oral.Susp) 15 gm PO PRN PRN PRN Reason: Hypoglycemia Guaifenesin (Guaifenesin/Dextromethorphan Oral Gege) 10 ml PO Q4HP PRN PRN Reason: Cough Last Admin: 12/28/21 19:06 Dose: 10 ml Sodium Chloride (Sodium Chloride 0.9%) 250 mls @ 20 mls/hr IV .[id number] [facility] Last Admin: 01/01/22 08:43 Dose: Not Given Diltiazem HCl 125 mg/ Dextrose 125 mls @ 5 mls/hr IV Q24HP PRN; Protocol PRN Reason: Tachyarrhythmias Insulin Human Lispro (Insulin Lispro 1 Unit/0.01 Ml Unit) 0 unit SQ [facility]; Protocol Last Admin: 01/01/22 08:42 Dose: 3 units Levothyroxine Sodium (Levothyroxine 50 Mcg Tablet) 50 mcg PO QAMAC [facility] Last Admin: 01/01/22 08:15 Dose: Not Given Metoprolol Tartrate (Metoprolol Tartrate 50 Mg Tablet) 75 mg PO BID [facility] Last Admin: 01/01/22 08:16 Dose: Not Given Montelukast Sodium (Montelukast 10 Mg Tablet) 10 mg PO QPM [facility] Last Admin: 12/31/21 21:31 Dose: 10 mg Ondansetron HCl (Ondansetron 4 Mg/2 Ml Vial) 4 mg IV Q4-6HP PRN; Protocol PRN Reason: Nausea And Vomiting Pantoprazole S[facility] ([facility] 40 Mg [facility]ial) [facility] Admin: 01/01/22 08:42 Dose: 40 mg Senna (Sennosides 1 Tablet) 1 tab PO DAILY [facility] Last Admin: 01/01/22 08:16 Dose: Not Given Sodium Chloride (0.9 % Sodium Chloride 10 Ml Syringe) 10 ml IV Q8 [facility] Last Admin: 01/01/22 05:45 Dose: 10 ml Topiramate (Topiramate 25 Mg Tablet) 25 mg PO BID PRN PRN Reason: Seizure Activity Vitamin B Complex (Vitamin B Complex 1 Capsule) 1 cap PO DAILY [facility] Last Admin: 01/01/22 08:16 Dose: Not Given Vitamin D (Vitamin D3 25 Mcg Tablet) 50 mcg PO DAILY [facility] Last Admin: 01/01/22 08:16 Dose: Not Given A/P Assessment and plan (1) Depression with anxiety: Status: Acute (2) Asthma: Status: Chronic (3) COPD exacerbation: Status: Acute (4) Community acquired pneumonia: Status: Acute (5) Crohn disease: Status: Chronic (6) Hypertension, essential: Status: Chronic (7) Hyperlipidemia: Status: Chronic (8) Sepsis: Status: Chronic (9) Hypothyroidism: Status: Chronic (10) Diabetes mellitus with neuropathy: Status: Chronic Qualifiers: Diabetes mellitus type: type 2 Diabetes mellitus extermination supervisor insulin use: without detention use Qualified Code(s): E11.40 - Type 2 diabetes mellitus with diabetic neuropathy, unspecified (11) Hypothyroidism (acquired): Status: Acute (12) Atrial fibrillation: Status: Acute (13) Hyponatremia: Status: Acute Narrative A/P Narrative: Assessment and Plans: #Goals of care -Family meeting today ?hopsice #Toxic metabolic encephalopathy -The patient is unable to follow commands, however does respond to sternal rub -DDx: hypoNa, infectious process, hypoxemia vs drug-induced -Investigations: MRI brain-> unable to be performed as the patient required sedation -Tx: holding home ativan, methacarbamol and duloxetine -Monitor clinically #Shock liver -LFTs are downtrending 1. Community acquired pneumonia, sepsis criteria: Supplemental oxygen therapy as needed titrate to achieve spo2>=88% Serial lactic acid Procalcitonin level Blood culture, no growth to date cbc w/ auto diff in the morning to trend WBC Completed a 5-day course of meropenem 01/01. IV fluids discontinued 12/31. 2. COPD exacerbation: BiPAP has been discontinued. Discontinue IV Solu-Medrol 01/01 (5 days now), started on duo nebs and Pulmicort nebulizers 3. Uncontrolled atrial fibrillation, likely triggered by infection: Treat underlying infection, see #[address] angio chest negative for PE Diltiazem drip stands by Metoprolol tartrate 75mg PO BID Digoxin [id number] score of 5. Discussed with patient the need to start anticoagulations, patient would like to do further discussions with her PCP later 4. Hyponatremia: Status post IV fluid boluses given in the ED, to be followed by normal saline at 100 cc/h Serum sodium level check every 8 hours. Goal of correction 8-10 points in the first 24 hours to avoid overcorrection with TRAINING PROGRAM MANAGER consequences such as central pontine myelinolyses Hyponatremia is now improved to 127 5. Depression with anxiety: Discontinue duloxetine in the setting of altered sensorium 6. Acquired hypothyroidism: Continue thyroid replacement therapy 7. History of Crohn's disease: Continue azathioprine 8. Type 2 diabetes mellitus: Hemoglobin A1c Hold oral hypoglycemics SSI AC HS Accu Chek AC HS Hypoglycemia protocol Diabetic diet 9. History of essential hypertensions: Continue metoprolol tartrate 75mg PO BID Diltiazem drip stands by 10. Dyslipidemia: Continue statin therapy GI ppx: Protonix DVT ppx: Lovenox Code: Full Prognosis: extremely guarded Disposition: inpatient ICU Time Spent With Patient Time: Total time spent is greater than 50% in coordination of care (as documented) at patient's floor/unit and/or counseling patient: Total time spent with greater than 50% in coordination of care (as documented) at patient's floor/unit and/or counseling patient:: 35 - 50 minutes Total Critical Care Time: 30 QUALITY VTE Deep Vein Thrombosis/Pulmonary Embolism Present on Admission: No
[2022-01-01] MEDS ORDERED: morphine 4 MG/ML VIAL NEB PRN (12:12)
[2022-01-01] MEDS ORDERED: LORazepam 2 MG/ML VIAL IV PRN (12:12)
[2022-01-01] MEDS ORDERED: LACTOPEROXI/GLUC OXID/POT THIO 1 EACH GEL..EA. TOPICAL PRN (12:12)
[2022-01-01] MEDS: morphine 4 MG/ML VIAL IV PRN (12:40)
[2022-01-02] MEDS: 0.9 % SODIUM CHLORIDE 10 ML SYRINGE IV SCH ×4 (05:45→20:36)
--- NOTE | 2022-01-02 08:06 | Internal Med Progress Note ---
SUBJECTIVE Subjective Patient information: Note initiated : 01/02/22 at 8:03 am Service Date, if different from initiated Date: [] Patient: Ashlie Sharpe a 86 y/o F admitted on 12/27/21 for Covid symptoms. Chief Complaint: [] Principal diagnosis: AMS Interval history: Ms. Sharpe is a 86 year old F history of Crohn's disease, depressions, anxiety, hypothyroidism, type 2 diabetes, essential hypertensions, mixed dyslipidemia, a trial fibrillation's, asthma, COPD, presenting with 3 weeks history of shortness of breath. She is vaccinated against COVID-pneumonia, influenza, and pneumococcus. Denies sick contact or recent travel. She is complain of 3 weeks history of shortness of breath accompanied with productive cough with green sputum productions, respiratory wheezings, subjective fever and chills. She is also complaining of generalized muscle aches and general weakness. She denies any chest pain or palpitations. She denies any GI symptoms such as nausea vomiting or change in her appetite. Vital signs significant for low-grade fever T-max 37.6, tachycardia with heart rate up to the 170s beats per minutes, and oxygen saturation in the mid 90s at rest and high 80s when ambulates. Labs significant for leukocytosis with WBC 18.3. Serum lactic acid 1.9. Influenza AMB, as well as COVID screening test negative. Serum sodium level 124. Chest x-ray showing bilateral infiltrates. 12/28: [place] negative. CT angio chest negative for PE. Serum sodium level 124. Afebrile overnight. On 1L/min oxygen. Cultures no growth to date. Diltiazem drip was being switched off at around 0530 this morning. Patient's degree of shortness of breath has improved. c/o productive cough with yellow/green sputum. c/o wheezing. Denies chest pain or palpitation. Denies fever chills or diaphoresis. Diltiazem drip stands by. Metoprolol tartrate, titrate dosage as tolerated. Patient would like to defer the decision of starting anticoagulants with her PCP. Continue supplemental oxygen, Vancomycin/Zosyn for pneumonia. Continue bronchodilators and Prednisone for COPD with exacerbation. 12/29: Afebrile overnight. Still on 2 L/min of oxygen. However, patient is have subjective and objective signs of increased work of breathing. VBG showing pH of 7.26, bicarb 15.8, PO2 23, PCO2 34.7, and lactic acid 2.0. She is also observed to have tachypnea with rate of breathing in the high 20s, and abdominal breathing pattern noted. Patient is complaining of shortness of breath as well as lethargy. She is able to follow verbal command though however. Also of note, her serum sodium levels continue to trend down now 120 despite normal saline given at a rate of 100 cc/h. Her heart rate is in the 100s beats per minutes with blood pressure mostly with systolic of 100 and diastolic of 60 mmHg. Repeat chest x-ray. Start the patient on BiPAP and see if the patient could tolerated. Repeat ABG 30 minutes after starting BiPAP. MRSA screening negative. Will DC vancomycin while keeping meropenem for her pneumonia. We will switched steroid from p.o. prednisone to IV Solu-Medrol. Will consider metoprolol and digoxin for atrial fibrillation's We will continue normal saline at 100 cc/h infusions while checking serum sodium level sequentially. Overall condition still very guarded. 12/30: Patient is currently on BiPAP. Afebrile overnight. All cultures no growth today. Urine output finally picks up now at around 50 cc/h. Serum creatinine level 1.4. Serum sodium level 119. LFTs continue to elevate. Patient feels like her degree of shortness of breath has improved. Not currently committing of any wheezing or cough. Not currently, never any chest pain or palpitations. Not currently complaining of any fever chills or diaphoresis. Patient is still extremely guarded. We will try to get rid of the BiPAP later today as tolerated. Continue meropenem for her pneumonia. Continue IV Solu-Medrol and Xopenex for COPD exacerbations. Continue metoprolol tartrate and digoxin for atrial fibrillation's. Patient w ould like to defer the decision to start anticoagulations with her PCP We will continue normal saline at 100 cc/h infusions while checking serum sodium level sequentially. 12/31: I have now taken over the care of this patient on hospital day #4. Her respiratory status and blood pressures are improving. We need to continue to work on her mentation. Discussed the case with the RN who was present at the bedside. 12/31: The patient is still altered. Discussed the case with the RN and the daughter who was present at the bedside. 01/01: The patient was transferred out of the ICU after she was made comfort measureso only. Constitutional Vitals: Vital Signs Temp Pulse Resp BP Pulse Ox O2 Del Method O2 Flow Rate 96.5 F L 112 H 20 148/95 96 0 01/01/22 08:00 01/01/22 19:06 01/01/22 19:06 01/01/22 11:01 01/01/22 11:01 01/01/22 08:03 01/01/22 05:00 Period Temp Pulse Resp BP Sys/Matt Pulse Ox O2 Del Method O2 Flow Rate Last 24 Hr 78-112 18-21 136-148/90-95 94-96 Intake and Output 01/01/22 01/02/22 01/02/22 21:59 05:59 13:59 Intake Total 900 Output Total 950 Balance -50 Intake & Output: Intake & Output 01/01/22 01/02/22 01/02/22 21:59 05:59 13:59 Intake Total 900 Output Total 950 Balance -50 Intake: Oral 900 Output: Urine Catheter Amount 950 Other: Urine Appearance Clear Urine Color Dark Yellow Head Head exam: Present atraumatic and normal inspection Eye Eye exam: Present normal appearance ENT ENT exam: Present mucous membranes moist, normal exam and normal external ear exam Neck Neck exam: Present normal inspection Respiratory Respiratory exam: Present normal respiratory exam Cardiovascular Cardiovascular exam: Present normal rate and rhythm GI/Abdominal GI/Abdominal exam: Present normal bowel sounds Back Exam Back exam: Present normal inspection Neurological Exam Neurological exam: Present altered Skin Skin exam: Present intact and warm OBJ DATA Labs CBC & Chem 7: 01/01/22 08:01 01/01/22 08:01 Labs: Abnormal Lab Results 01/01/22 01/01/22 01/01/22 08:01 08:01 07:47 WBC 17.2 H RBC 3.33 L Hgb 9.9 L Hct 31.6 L RDW 14.7 H Plt Count 133 L MPV 10.5 H Immature Gran % (Auto) 4.4 H Neut % (Auto) 81.0 H Lymph % (Auto) 11.0 L Lymph # (Auto) Immature Gran # 0.75 H Absolute Neutrophils 14.70 H POC pCO2 29.6 L POC pO2 76 L POC HCO3 18.0 L POC Total CO2 19.0 L POC ABG Base Excess -7.0 L Sodium 129 L Chloride Carbon Dioxide 17 L Anion Gap BUN 34 H Glucose 224 H AST 241 H ALT 940 H Alkaline Phosphatase 314 H Total Protein 5.8 L Albumin 2.9 L 01/01/22 12/31/21 12/31/21 05:08 05:24 05:24 WBC 16.5 H RBC 3.23 L Hgb 9.6 L Hct 30.2 L RDW 14.8 H 14.6 H Plt Count 88 L MPV 11.4 H 10.6 H Immature Gran % (Auto) 5.0 H 4.6 H Neut % (Auto) 80.7 H 85.0 H Lymph % (Auto) 11.6 L 8.5 L Lymph # (Auto) 0.93 L Immature Gran # 0.83 H 0.50 H Absolute Neutrophils 14.16 H 9.81 H POC pCO2 POC pO2 POC HCO3 POC Total CO2 POC ABG Base Excess Sodium 127 L Chloride 94 L Carbon Dioxide 16 L Anion Gap 17.0 H BUN 40 H Glucose 200 H AST 1679 H ALT 1581 H Alkaline Phosphatase 346 H Total Protein 5.8 L Albumin 2.9 L 12/30/21 14:22 WBC RBC Hgb Hct RDW Plt Count MPV Immature Gran % (Auto) Neut % (Auto) Lymph % (Auto) Lymph # (Auto) Immature Gran # Absolute Neutrophils POC pCO2 POC pO2 POC HCO3 POC Total CO2 POC ABG Base Excess Sodium 121 L Chloride Carbon Dioxide Anion Gap BUN Glucose AST ALT Alkaline Phosphatase Total Protein Albumin Meds: Medications Acetaminophen (Acetaminophen 325 Mg Tablet) 650 mg PO Q4-6HP PRN; Protocol PRN Reason: Per Pain Protocol/Fever > 101 Last Admin: 12/29/21 06:29 Dose: 650 mg Docusate Sodium (Docusate Sodium 100 Mg Capsule) 100 mg PO BID SUZANNA Last Admin: 01/01/22 23:39 Dose: Not Given Glucose Oxid/Lactoperoxid/Muramidas (Lactoperoxi/Gluc Oxid/Pot Thio 1 Each Gel..Ea.) 1 each TOPICAL PRN PRN PRN Reason: Dry Mouth Lorazepam (Lorazepam 2 Mg/Ml Vial) 0 mg IV Q1HP PRN; Protocol PRN Reason: ANXIETY/SEDATION Morphine Sulfate (Morphine 4 Mg/Ml Vial) 2 - 6 mg IV Q1HP PRN; Protocol PRN Reason: Per Pain Protocol Last Admin: 01/01/22 12:40 Dose: 4 mg Morphine Sulfate (Morphine 4 Mg/Ml Vial) 4 mg NEB Q4HP PRN PRN Reason: Shortness Of Breath Ondansetron HCl (Ondansetron 4 Mg/2 Ml Vial) 4 mg IV Q4-6HP PRN; Protocol PRN Reason: Nausea And Vomiting Sodium Chloride (0.9 % Sodium Chloride 10 Ml Syringe) 10 ml IV Q8 SUZANNA Last Admin: 01/02/22 05:45 Dose: 10 ml Topiramate (Topiramate 25 Mg Tablet) 25 mg PO BID PRN PRN Reason: Seizure Activity A/P Assessment and plan (1) Depression with anxiety: Status: Acute (2) Asthma: Status: Chronic (3) COPD exacerbation: Status: Acute (4) Community acquired pneumonia: Status: Acute (5) Crohn disease: Status: Chronic (6) Hypertension, essential: Status: Chronic (7) Hyperlipidemia: Status: Chronic (8) Sepsis: Status: Chronic (9) Hypothyroidism: Status: Chronic (10) Diabetes mellitus with neuropathy: Status: Chronic Qualifiers: Diabetes mellitus type: 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: without assisted use Qualified Code(s): E11.40 - Type 2 diabetes mellitus with diabetic neuropathy, unspecified (11) Hypothyroidism (acquired): Status: Acute (12) Atrial fibrillation: Status: Acute (13) Hyponatremia: Status: Acute Narrative A/P Narrative: Assessment and Plans: #Goals of care -Family meeting 01/01-> transitioned to hospice #Toxic metabolic encephalopathy -The patient is unable to follow commands, however does respond to sternal rub -DDx: hypoNa, infectious process, hypoxemia vs drug-induced -Investigations: MRI brain-> unable to be performed as the patient required sedation -Tx: holding home ativan, methacarbamol and duloxetine -Monitor clinically #Shock liver -LFTs are downtrending 1. Community acquired pneumonia, sepsis criteria: Supplemental oxygen therapy as needed titrate to achieve spo2>=88% Serial lactic acid Procalcitonin level Blood culture, no growth to date cbc w/ auto diff in the morning to trend WBC Completed a 5-day course of meropenem 01/01. IV fluids discontinued 12/31. 2. COPD exacerbation: BiPAP has been discontinued. Discontinue IV Solu-Medrol 8/3 (5 days now), started on duo nebs and Pulmicort nebulizers Time Spent With Patient Time: Total time spent is greater than 50% in coordination of care (as documented) at patient's floor/unit and/or counseling patient: Total time spent with greater than 50% in coordination of care (as documented) at patient's floor/unit and/or counseling patient:: 25 - 35 minutes QUALITY VTE Deep Vein Thrombosis/Pulmonary Embolism Present on Admission: No
[2022-01-02] MEDS: DOCUSATE SODIUM 100 MG CAPSULE PO SCH ×2 (09:22→20:36)
[2022-01-02] MEDS: morphine 4 MG/ML VIAL IV PRN ×2 (09:40→15:30)
[2022-01-02] MEDS: ACETAMINOPHEN 325 MG TABLET PO PRN (14:11)
[2022-01-03] MEDS: morphine 4 MG/ML VIAL IV PRN ×3 (00:16→10:30)
[2022-01-03] MEDS: 0.9 % SODIUM CHLORIDE 10 ML SYRINGE IV SCH (05:40)
--- NOTE | 2022-01-03 10:26 | Discharge Summary ---
Discharge Provider Provider IMPORTANT FOLLOW-UP INFORMATION FOR PCP: Patient information: Note initiated : 01/03/22 at 10:25 am Service Date, if different from initiated Date: [] Patient: Ashlie Sharpe 86 y/o F admitted on 12/27/21 for Covid symptoms. Chief Complaint: [AMS] Date of admission: 12/27/21 16:05 Discharge date: 01/03/22 Primary care physician: Alberto Bennett MD Consults: 12/27/21 Consult to Physician [CONS] Stat Comment: Consulting Provider: Jaylon Brito Reason For Exam: Physician to Consult 01/02/22 10:38 Consult to Physician [CONS] Routine Comment: snf referral Consulting Provider: [facility] Reason For Exam: Physician to Consult Attending physician on discharge: [facility] COURSE Hospital Course Hospital course: Interval history: Ms. Sharpe is a 86 year old F history of Crohn's disease, depressions, anxiety, hypothyroidism, type 2 diabetes, essential hypertensions, mixed dyslipidemia, atrial fibrillation's, asthma, COPD, presenting with 3 weeks history of shortness of breath. She is vaccinated against COVID-pneumonia, influenza, and pneumococcus. Denies sick contact or recent travel. She is complain of 3 weeks history of shortness of breath accompanied with productive cough with green sputum productions, respiratory wheezings, subjective fever and chills. She is also complaining of generalized muscle aches and general weakness. She denies any chest pain or palpitations. She denies any GI symptoms such as nausea vomiting or change in her appetite. Vital signs significant for low-grade fever T-max 37.6, tachycardia with heart rate up to the 170s beats per minutes, and oxygen saturation in the mid 90s at rest and high 80s when ambulates. Labs significant for leukocytosis with WBC 18.3. Serum lactic acid 1.9. Influenza AMB, as well as COVID screening test negative. Serum sodium level 124. Chest x-ray showing bilateral infiltrates. 12/28: [place] negative. CT angio chest negative for PE. Serum sodium level 124. Afebrile overnight. On 1L/min oxygen. Cultures no growth to date. Diltiazem drip was being switched off at around 0530 this morning. Patient's degree of shortness of breath has improved. c/o productive cough with yellow/green sputum. c/o wheezing. Denies chest pain or palpitation. Denies fever chills or diaphoresis. Diltiazem drip stands by. Metoprolol tartrate, titrate dosage as tolerated. Patient would like to defer the decision of starting anticoagulants with her PCP. Continue supplemental oxygen, Vancomycin/Zosyn for pneumonia. Continue bronchodilators and Prednisone for COPD with exacerbation. 12/29: Afebrile overnight. Still on 2 L/min of oxygen. However, patient is have subjective and objective signs of increased work of breathing. VBG showing pH of 7.26, bicarb 15.8, PO2 23, PCO2 34.7, and lactic acid 2.0. She is also observed to have tachypnea with rate of breathing in the high 20s, and abdominal breathing pattern noted. Patient is complaining of shortness of breath as well as lethargy. She is able to follow verbal command though however. Also of note, her serum sodium levels continue to trend down now 120 despite normal saline given at a rate of 100 cc/h. Her heart rate is in the 100s beats per minutes with blood pressure mostly with systolic of 100 and diastolic of 60 mmHg. Repeat chest x-ray. Start the patient on BiPAP and see if the patient could tolerated. Repeat ABG 30 minutes after starting BiPAP. MRSA screening negative. Will DC vancomycin while keeping meropenem for her pneumonia. We will switched steroid from p.o. prednisone to IV Solu-Medrol. Will consider metoprolol and digoxin for atrial fibrillation's We will continue normal saline at 100 cc/h infusions while checking serum sodium level sequentially. Overall condition still very guarded. 12/30: Patient is currently on BiPAP. Afebrile overnight. All cultures no growth today. Urine output finally picks up now at around 50 cc/h. Serum creatinine level 1.4. Serum sodium level 119. LFTs continue to elevate. Patient feels like her degree of shortness of breath has improved. Not currently committing of any wheezing or cough. Not currently, never any chest pain or palpitations. Not currently complaining of any fever chills or diaphoresis. Patient is still extremely guarded. We will try to get rid of the BiPAP later today as tolerated. Continue meropenem for her pneumonia. Continue IV Solu-Medrol and Xopenex for COPD exacerbations. Continue metoprolol tartrate and digoxin for atrial fibrillation's. Patient would like to defer the decision to start anticoagulations with her PCP We will continue normal saline at 100 cc/h infusions while checking serum sodium level sequentially. 12/31: I have now taken over the care of this patient on hospital day #4. Her respiratory status and blood pressures are improving. We need to continue to work on her mentation. Discussed the case with the RN who was present at the bedside. 12/31: The patient is still altered. Discussed the case with the RN and the daughter who was present at the bedside. 01/01: The patient was transferred out of the ICU after she was made comfort measures only. 01/03: Discharged to SNF #Goals of care -Family meeting 01/01-> transitioned to hospice #Toxic metabolic encephalopathy -The patient is unable to follow commands, however does respond to sternal rub -DDx: hypoNa, infectious process, hypoxemia vs drug-induced -Investigations: MRI brain->unable to be performed as the patient required s edation -Tx: holding home ativan, methacarbamol and duloxetine -Monitor clinically #Shock liver -LFTs are downtrending 1. Community acquired pneumonia, sepsis criteria: Supplemental oxygen therapy as needed titrate to achieve spo2>=88% Serial lactic acid Procalcitonin level Blood culture, no growth to date cbc w/ auto diff in the morning to trend WBC Completed a 5-day course of meropenem 01/01. IV fluids discontinued 12/31. 2. COPD exacerbation: BiPAP has been discontinued. Discontinue IV Solu-Medrol 01/01 (5 days now), started on duo nebs and Pulmicort nebulizers Discharge diagnosis: CAP, Encephalopathy, acute liver failure Time Spent with Patient Time attestation: Total time spent providing and/or coordinating discharge services: Time spent: Greater than 30 minutes EXAM Constitutional Vitals: Temp Pulse Resp BP Pulse Ox O2 Del Method O2 Flow Rate 96.5 F L 40 L 20 137/88 87 L 0 01/03/22 07:53 01/03/22 07:53 01/03/22 07:53 01/03/22 07:53 01/03/22 08:00 01/03/22 08:00 01/01/22 05:00 General appearance: cooperative Head Head exam: Present atraumatic, normal inspection and normocephalic Eye Eye exam: Present EOMI, normal appearance and PERRL; Absent conjunctival injection ENT ENT exam: Present normal exam; Absent mucous membranes dry Neck Neck exam: Present full ROM; Absent lymphadenopathy Respiratory Respiratory exam: Present normal respiratory exam and CTAB; Absent decreased breath sounds, respiratory distress or wheezes Cardiovascular Cardiovascular exam: Present normal rate and rhythm and RRR; Absent JVD GI/Abdominal GI/Abdominal exam: Present normal bowel sounds and soft; Absent diminished bowel sounds, distended, guarding, mass, rebound or tenderness Neurological Exam Neurological exam: Present alert, CN II-XII intact and oriented X3 Psychiatric Psychiatric exam: Present normal affect and normal mood Skin Skin exam: Present intact and warm; Absent erythema, pallor, petechiae or rash Discharge Plan Patient/Caregiver Discharge Instructions Activity: increase activity as tolerated Diet: Regular Diet Instructions: Hospice Care (GEN) Prescriptions: New oxycodone 5 mg tablet 5 mg PO Q4H PRN (Reason: pain) Qty: 20 0RF Continued albuterol sulfate 90 mcg/actuation HFA aerosol inhaler 90 mcg INHALATION .COMPLEX PRN (Reason: shortness of breath) Rx Instructions: 90 mcg INHALATION PRN; administer with spacer albuterol sulfate 1.25 mg/3 mL solution for nebulization 1.25 mg inhalation TID PRN (Reason: short of breath) duloxetine 30 mg capsule,delayed release(DR/EC) 30 mg PO BID gabapentin 300 mg Tablet 300 mg PO TID PRN (Reason: Pain) acetaminophen [Acetaminophen Extra Strength] 500 mg Tablet 1,000 mg PO Q6H PRN (Reason: Pain) lorazepam 1 mg tablet 1 mg PO BIDP PRN (Reason: Anxiety) Qty: 20 0RF Discontinued montelukast 10 mg tablet 10 mg PO QPM metoprolol tartrate 50 mg tablet 50 mg PO BID cholecalciferol (vitamin D3) 50 mcg (2,000 unit) capsule 50 mcg PO QDAY [id number]-[id number]-[id number]-capryl 100 mg-150 mg- 50 mg-150 mg capsule 1 cap PO DAILY azathioprine 50 mg tablet 100 mg PO QDAY topiramate 25 mg tablet 25 mg PO BID PRN (Reason: migraines) levothyroxine 50 mcg capsule 50 mcg PO QDAY methocarbamol 500 mg tablet 500 mg PO TID PRN (Reason: Spasms) cyanocobalamin (vitamin B-12) 1,000 mcg/mL solution 1,000 mcg IM QMONTH vitamin B complex Tablet 1 tab PO QDAY gemfibrozil 600 MG tablet 600 mg PO BID Follow Up Plan Follow up with: Alberto Bennett MD [Primary Care Provider] - Patient Disposition: Hospice - Medical Facility Rehab Potential: Fair I certify that the patient requires SNF services: Yes Discharge Orders: Discharge Order (Routine); Ordered 01/03/22 Ordered By: Killian MONAHAN VTE Deep Vein Thrombosis/Pulmonary Embolism Present on Admission: No
[2022-01-03] MEDS: DOCUSATE SODIUM 100 MG CAPSULE PO SCH (10:30)
== END 2022-01-03 11:54 | disposition hospice, inpatient (51) | DRG 871 ==
LOC: ED 12:22 → ICU 16:05
PROVIDERS: ADMIT Internal Medicine; ATTEND Internal Medicine